=== PATIENT | male | born 1925 | race Caucasian/White ===

== ENCOUNTER 2016-09-16 19:29 | Emergency (ER) | payer MEDICARE, BC ==
[~2016-09-16] VITALS: Ht 188 cm; Wt 96.9 kg
[~2016-09-16 19:29] MED LIST: ACET-2723 PO; ADVANCED COLON CARE PO; ALLO100T51 PO; ASCO-324 PO; CETI-115 PO; CLON0.5T62 PO; ESCI10TA PO; FERR-70 PO; FURO-153 PO; HYDR-347 PO; MIRA25TA PO; MULT-1243 PO; OMEP20CA4 PO; POTA-81 PO; PRAV40TA44 PO; PRIM50TA30 PO; WARF2.5T48 PO; WARF5TAB6 PO
[2016-09-16 19:32] VITALS: Ht 188 cm; Wt 96.9 kg
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
--- OUTSIDE RECORDS SUMMARY | 2016-09-16 19:35 | XMS REPORT | Referral Summary ---
Author Author [facility] Organization [facility] Address Unknown Phone Unavailable Care Team Providers Care Formula Mixer Name Role Phone Bernardino Harris Primary Care Physician [phone] Encounter VC Date(s): 07/27/16 - 07/27/16 [facility] [address] [place] [id number] Discharge Disposition: 01-Home or Self Care Attending Physician: Richie Harris MD Admitting Physician: Richie Harris MD Vital Signs No data available for this section Problem List Condition Effective Dates Status Health Status Informant Allergies(Confirmed) Active Allergic Active rhinitis(Confirmed) Anxiety state, Active unspecified(Confirme d) Aortic Active insufficiency(Confir med) Aortic stenosis, Active mild(Confirmed) Atrial Active fibrillation(Confirm ed) Chronic renal 2009 Active impairment, stage 3 (moderate)(Confirmed ) GERD Active (gastroesophageal reflux disease)(Confirmed) Hyperlipidemia(Confi Active rmed) Prostate Active cancer(Confirmed) Mild mitral Active regurgitation(Confir med) Dermatophytosis of Active nail(Confirmed) Pain in Active limb(Confirmed) PVD (peripheral Active vascular disease)(Confirmed) Pulmonary Active insufficiency - mild(Confirmed) Mild tricuspid Active regurgitation(Confir med) Urge urinary Active incontinence(Confirm ed) Urinary Active urgency(Confirmed) Allergies, Adverse Reactions, Alerts No Known Allergies Medications [place] 7.5 mg-325 mg oral tablet 1 tabs, Oral, TID, X 30 days, # 90 tabs, 0 Refill(s) Start Date: 07/25/16 Stop Date: 08/24/16 Status: Ordered Results No data available for this section Immunizations No data available for this section Procedures Procedure Date Related Diagnosis Body Site Repair of skin wound without graft - open 2014 wound of back MVR - Mitral valve replacement 2008 Laminectomy - L2, L3, L4 2003 Laminectomy - L4-L5 1999 Prostatectomy 1999 Appendectomy 1944 Social History Social History Type Response Smoking Status Never smoker Assessment and Plan No data available for this section
--- OUTSIDE RECORDS SUMMARY | 2016-09-16 19:35 | XMS REPORT | Referral Summary ---
Author Author [facility] Organization [facility] Address Unknown Phone Unavailable Care Team Providers Care Snuff Drier Name Role Phone Bernardino Harris Primary Care Physician [phone] Encounter VC Date(s): 06/01/16 - 06/11/16 [facility] [address] [place] [id number] Discharge Disposition: 01-Home or Self [...] Adverse Reactions, Alerts No Known Allergies Medications No data available for this section Results No data available for this section Immunizations No data available for this section Procedures Procedure Date Related Diagnosis Body Site Repair of skin wound without graft - open 2014 wound of back MVR - Mitral valve replacement 2009 Laminectomy - L2, L3, L4 2003 Laminectomy - L4-L5 1998 Prostatectomy 1998 Appendectomy 1943 Social History Social History Type Response Smoking Status Never smoker Assessment and Plan No data available for this section
--- OUTSIDE RECORDS SUMMARY | 2016-09-16 19:35 | XMS REPORT | Continuity of Care Document ---
Author Author [facility] Organization [facility] Address Unknown Phone Unavailable Support Name Relationship Address Phone LARRY REYES II, MD Caregiver [address] [place] [address] [address] [place], [place] [phone] MARTHA MOODY MD Caregiver [facility] PLASTIC SURGERY [address] [place] [address] [address] [place], [place] [id number] CALEB FLORES DPOA Next Of Kin [address] [place] [address] DA Insurance Providers Payer Name Policy Number Subscriber Name Relationship Medicare [id number] Annalee Tabares 18 Self [facility] [id number] Annalee Tabares 18 Self Advance Directives Directive Response Recorded Date/Time Advanced Directives Type Living Will DPOA for Healthcare 10/22/13 8:46am Ordered Resuscitation Status Do Not Resuscitate 09/26/13 4:42am Resuscitation Documents on File Yes 10/22/13 8:46am Chief Complaint and Reason for Visit Chief Complaint Weakness/Neuro Symptoms Reason for Visit Confusion Bradycardia Weakness Problems Medical Problems Problem Onset Date [...] 01/05/13 01/05/13 Discontinued Allopurinol 100 Mg PO DAILY 01/05/13 Active Solifenacin 10 Mg PO TWICE A DAY 10/24/13 03/20/14 Discontinued Green Tea [place] Extract Unknown Dose PO 11/22/13 11/25/13 Discontinued Furosemide 1 Tab PO DAILY 01/22/14 Active Potassium Chloride 20 Meq PO DAILY 01/22/14 Active Aspirin 1 Tab PO DAILY 01/22/14 Active Omeprazole 20 Mg PO DAILY 03/19/14 Active Warfarin Sodium 5-7.5 Mg PO 1700 Take 1 tablet, by mouth, 1 time a day ( at 5 pm). 06/08/14 Active Multivits-Min/FA/Lycopene/Lut 1 Tab PO DAILY 06/08/14 Active Ascorbate Calcium 1 Tab PO DAILY 06/08/14 Active Cetirizine HCl 1 Tab PO DAILY 06/08/14 Active [Advanced Colon Care] 1 Tab PO NEEDED 06/08/14 Active Ferrous Sulfate, Dried 65 Mg PO GIVE WITH BREAKFAST 06/08/14 Active Solifenacin Succinate 10 Mg PO DAILY 06/08/14 Active Nystatin 1 Applic TOP NEEDED Apply powder twice daily to affected area. 06/08/14 Active Loratadine 1 Tab PO NEEDED 07/14/14 Active Social History Social History Problem Response Recorded Date/Time Chewing Tobacco Status No 10/22/2013 8:47am Hx Substance Use No 07/14/2014 10:56am Hx Alcohol Use No 07/14/2014 10:56am Has the pt used tobacco in the last 12 months No 07/14/2014 10:56am Tobacco Usage none 06/09/2014 11:53am Query Response [...] rate. Condition at time of discharge: Good Pass Plan of Care Discharge Date 06/10/14 7:00pm Disposition 02 TO [facility] Condition at Discharge Stable Instructions/Education Provided Cardiac Arrhythmia (Alternative Therapy) Prescriptions See Medications Section Referrals LARRY REYES II, MD Functional Status Query Response Date Recorded Physical [...] Name Given Type Hx Influenza Vaccination Y 2013 Historical Hx Pneumococcal Vaccination Y 2013 Historical Hx Influenza Vaccination Y 2013 Historical Hx Tetanus Diptheria Y 01/22/14 Historical Vital Signs Acute Vital Signs Vital Response Date/Time Temperature (Fahrenheit) 96.9 deg F (96.8 - 99.1) Temperature (Calculated Celsius) 36.60332 degrees C (36.0 - 37.3) Temperature Source Temporal Pulse Rate (adult) 80 bpm (60 - 100) Respiratory Rate 16 breaths/min (10 - 20) O2 Sat by Pulse Oximetry 98 % (90 - 100) Blood Pressure 107/68 mm Hg Blood Pressure Source Automatic Cuff Height 6 ft 2 in Weight 206 lb Body Mass Index 26.0 kg/m^2 Results Test Source Date Result Interp. [...] 6:45pm 95 U/L N 38-126 Anion Gap July 16, 2014 7:59am 12 MEQ/L N 5-15 Aspartate Amino Transf (AST/SGOT) June 08, 2014 6:45pm 32 U/L N 17- 59 B-Type Natriuretic Peptide March 30, 2009 12:00am 737 PG/ML H 15-100 BUN/Creatinine Ratio July 16, 2014 7:59am 15 RATIO N 6-26 Band Neutrophils # January 06, 2013 4:48am 1.1 T/MM3 - Band Neutrophils % January 06, 2013 4:48am 10.0 % DH 0-6 Basophils # (Auto) July 16, 2014 7:59am 0.1 T/MM3 N 0-0.2 COMMENT [facility] WILL CALL Basophils # (Manual) January 06, 2013 4:48am 0.1 T/MM3 N 0-0.2 Basophils % (Manual) January 06, 2013 4:48am 1.0 % N 0-2 Basophils (%) (Auto) July 16, 2014 7:59am 1.9 % N 0-2 COMMENT [facility] WILL CALL Blood Urea Nitrogen July 16, 2014 7:59am 23.0 MG/DL H 9-20 C-Reactive Protein July 10, 2012 4:40am 30.9 MG/L H 0-9 Calcium Level July 16, 2014 7:59am 9.3 MG/DL N 8.4-10.2 Calculated Osmolality July 16, 2014 7:59am 274 MOSM/KG N 261-280 Carbon Dioxide Level July 16, 2014 7:59am 29 MEQ/L N 22-30 Chemistry Specimen Hemolysis July 16, 2014 7:59am < 15 0-25 0-25 : No Hemolysis.26-70: Slight Hemolysis - can falsely elevate K and Urine Protein. 71-285: Moderate Hemolysis - can falsely elevate K, Troponin I, CA 19-9, PTH, CSF GLucose, and Urine Protein, and can falsely decrease Phenytoin. 286-999: Gross Hemolysis - can falsely elevate K, Troponin I, CA 19-9, PTH, CSF Glucose, and Urine Protine, and can falsely decrease Phenytoin. Recommend specimen recollection. Chloride Level July 16, 2014 7:59am 100 MEQ/L N 98-107 Cholesterol Level April 24, 2009 8:09am 150 MG/DL N 132-199 Cholesterol/HDL Ratio April 24, 2009 8:09am 5.0 RATIO N 0-5.0 Conjugated Bilirubin June 08, 2014 6:45pm 0.00 MG/DL N 0.00-0.30 Creatinine July 16, 2014 7:59am 1.5 MG/DL N 0.8-1.5 Digoxin Level July 04, 2012 4:17pm < 0.4 NG/ML L 0.8-2.0 EKG March 30, 2009 7:20pm Complete - Eosinophils # (Auto) July 16, 2014 7:59am 0.2 T/MM3 N 0-0.5 COMMENT [facility] WILL CALL Eosinophils # (Manual) January 06, 2013 4:48am 0.1 T/MM3 N 0-0.5 Eosinophils % (Manual) January 06, 2013 4:48am 1.0 % N 0-4 Eosinophils (%) (Auto) July 16, 2014 7:59am 4.9 % H 0-4 COMMENT [facility] WILL CALL Folate June 10, 2014 5:28am > 20.0 NG/ML H 2.76-20 NORMAL ADULT RANGE: 2.76->20 ng/mL Free Thyroxine July 04, 2012 4:17pm 1.68 NG/DL N 0.78-2.19 Gentamicin Level Peak July 06, 2012 3:20pm 6.8 UG/ML N 5-12 Gentamicin Level Trough July 06, 2012 1:57pm 1.1 UG/ML N 0-2 Globulin June 08, 2014 6:45pm 3.7 G/DL H 2.4-3.6 Glomerular Filtration Rate Calc July 16, 2014 7:59am 44 - Glucometer July 04, 2012 4:59pm 120 mg/dL H 75-110 Glucose Level July 16, 2014 7:59am 89 MG/DL N 75-110 HDL Cholesterol Direct April 24, 2009 8:09am 30 MG/DL L 40-60 Hematocrit July 16, 2014 7:59am 35.9 % L 41-53 COMMENT [facility] WILL CALL Hemoglobin July 16, 2014 7:59am 12.2 GM/DL L 13.5-17.5 COMMENT [facility] WILL CALL Icterus Index July 16, 2014 7:59am < 2 0-7 Immature Granulocyte # (Auto) July 16, 2014 7:59am 0.00 T/MM3 N 0.00 -0.03 COMMENT [facility] WILL CALL Immature Granulocyte % (Auto) July 16, 2014 7:59am 0.0 % N 0.0-0.5 COMMENT [facility] WILL CALL Influenza Type A Antigen June 08, 2014 7:20pm Negative - Negative for Flu A protein antigen. Assay sensitivity is90%. Influenza Type B Antigen June 08, 2014 7:20pm Negative - Negative for Flu B protein antigen. Assay sensitivity is90%. Iron Level June 10, 2014 5:28am 64 UG/DL N 49-181 LDL Cholesterol, Calculated April 24, 2009 8:09am 105.2 N 66-159 Lab Scanned Report December 23, 2013 8:08pm LAB TEST FORM REQUEST [id number] - Lymphocytes # (Auto) July 16, 2014 7:59am 1.8 T/MM3 N 1-4.8 COMMENT [facility] WILL CALL Lymphocytes # (Manual) January 06, 2013 4:48am 1.1 T/MM3 N 1-4.8 Lymphocytes % (Manual) January 06, 2013 4:48am 10.0 % L 23-45 Lymphocytes (%) (Auto) July 16, 2014 7:59am 38.0 % N 23-45 COMMENT [facility] WILL CALL Magnesium Level June 09, 2014 7:05am 2.0 MG/DL N 1.6-2.3 COMMENT add to blood in lab Mean Corpuscular Hemoglobin July 16, 2014 7:59am 32.7 UUG N 26-34 COMMENT [facility] WILL CALL Mean Corpuscular Hemoglobin Concent July 16, 2014 7:59am 34.0 GM/DL N 31-37 COMMENT [facility] WILL CALL Mean Corpuscular Volume July 16, 2014 7:59am 96.2 UM3 N 80-100 COMMENT [facility] WILL CALL Mean Platelet Volume July 16, 2014 7:59am 10.2 UM3 N 9.4-12.4 COMMENT [facility] WILL CALL Metamyelocytes # January 04, 2013 7:55pm 0.1 T/MM3 - Metamyelocytes % January 04, 2013 7:55pm 1.0 % H 0-0 Monocytes # (Auto) July 16, 2014 7:59am 0.5 T/MM3 N 0-0.8 COMMENT [facility] WILL CALL Monocytes # (Manual) January 05, 2013 4:30am 0.4 T/MM3 N 0-0.8 Monocytes % (Manual) January 05, 2013 4:30am 3.0 % N 0-9.0 Monocytes (%) (Auto) July 16, 2014 7:59am 9.6 % H 0-9.0 COMMENT [facility] WILL CALL NL-Rke-K-Type Natriuretic Peptide January 04, 2013 7:55pm 2330 PG/ML H 0- 175 Rule in cut points: <50 years old=450; 50-75 years old=900; >75 years old=1800; When utilizing ProBNP rule-in cut points, adjustment for impaired renal function is typically not required. Neutrophils # (Auto) July 16, 2014 7:59am 2.1 T/MM3 N 1.8-7.7 COMMENT [facility] WILL CALL Neutrophils # (Manual) January 06, 2013 4:48am 8.4 T/MM3 H 1.8-7.7 Neutrophils % (Manual) January 06, 2013 4:48am 78.0 % H 33-66 Neutrophils (%) (Auto) July 16, 2014 7:59am 45.6 % N 33-66 COMMENT [facility] WILL CALL Parathyroid Hormone (Intact) March 22, 2010 10:29am 40.9 PG/ML N 8.2- 83.5 Percent Iron Saturation June 10, 2014 5:28am 21 % N 13-59 Phosphorus Level March 22, 2010 10:29am 3.8 MG/DL N 2.5-4.5 Platelet Count July 16, 2014 7:59am 143 T/MM3 N 130-400 COMMENT [facility] WILL CALL Potassium Level July 16, 2014 7:59am 4.5 MEQ/L N 3.6-5 Procalcitonin June 08, 2014 6:45pm < 0.05 NG/ML - PCT </=0.5 ng/ mL - sepsis not likely;PCT >0.5 and </=2 ng/mL - sepsis possible; PCT >2 ng/mL - sepsis likely; PCT >/=10 ng/mL - systemic inflammatory response - sepsis or septic shock highly indicated. Prothromb Time International Ratio July 16, 2014 7:59am 1.16 H 0.81- 1.09 THERAPUTIC RANGE=2.00-3.00 FOR ANTI-THROMBOSIS THERAPUTIC RANGE=2.50- 3.50 FOR IMPLANTED VALVE RDW Standard Deviation July 16, 2014 7:59am 43.0 FL N 36.9-50.2 COMMENT [facility] WILL CALL Reactive Lymphocytes # January 04, 2013 7:55pm 0.1 T/MM3 H 0-0 Reactive Lymphocytes % January 04, 2013 7:55pm 1.0 % H 0-0 Red Blood Count July 16, 2014 7:59am 3.73 M/MM3 L 4.50-5.90 COMMENT [facility] WILL CALL Respiratory Syncytial Virus Rapid July 05, 2012 12:33pm Ref lab rpt scanned - --- 07/06/12 0805 ---RSVREF previously reported as: SEND OUT Respiratory Virus Culture (LAB) July 05, 2012 12:33pm Ref lab rpt scanned - --- 07/20/12 1519 ---CUVIRR previously reported as: SEND OUT Sodium Level July 16, 2014 7:59am 141 MEQ/L N 134-144 Stool Occult Blood January 08, 2013 4:15pm Negative - Has specimen been collected/obtained? YCOMMENT get 3 specimen Tests Not Done March 27, 2009 11:05am Not done - NO [facility] ORDERED Thyroid Stimulating Hormone (TSH) June 09, 2014 7:05am 1.64 MIU/L N 0.47-4.68 COMMENT add to blood in lab Total Bilirubin June 08, 2014 6:45pm 1.10 MG/DL N 0.20-1.30 Total Iron Binding Capacity June 10, 2014 5:28am 299 UG/DL N 261- 497 Total Protein June 08, 2014 6:45pm 7.2 G/DL N 6.3-8.2 Triglycerides Level April 24, 2009 8:09am 74 MG/DL N 40-160 Troponin I June 09, 2014 7:05am 0.017 ng/ml N 0-0.12 COMMENT add to blood in lab Turbidity July 16, 2014 7:59am < 20 0-20 Unconjugated Bilirubin June 08, 2014 6:45pm 0.60 [...] Has specimen been collected/obtained? Y Urine Specific [place] June 08, 2014 7:20pm 1.010 L - [...] 2014 6:45pm 1.2 MMOL/L N 0.6-2.2 Vitamin B12 Level June 10, 2014 5:28am 554 PG/ML N 239-931 Vitamin D 25-Hydroxy March 22, 2010 10:29am Ref lab rpt scanned - - -- 03/24/10 1413 ---VIT25 previously reported as: SEND OUT White Blood Count July 16, 2014 7:59am 4.7 T/MM3 N 4.5-11.0 COMMENT [facility] WILL CALL Blood Culture Blood March 19, 2014 3:27pm NO GROWTH AFTER 5 DAYS Gram Stain Leg-Right Upper March 30, 2009 8:56pm Name: ANNALEE TABARES Unit #: [id number] : 1925 Sex: M Loc / Svc: [facility] DOS: 07/15/14 Signed Report #: [id number] DIAGNOSTIC IMAGING REPORT TYPE OF EXAM: US CAROTID DOPP COMPLETE Dictated By: ADRIENNE TAYLOR MD TECHNIQUE: Grayscale, color and duplex Doppler imaging was performed of the carotid systems bilaterally. Velocities in cm/sec RIGHT: PSV ICA 88 PSV CCA 111 PDV CCA 31 PSV ECA 108 ICA Diameter reduction 10%-30% (1.0-1.2 PSV<110)% LEFT: PSV ICA 89 PDV ICA 18 PSV CCA 107 PDV CCA 18 PSV ECA 171 ICA Diameter reduction 10%-30% (1.0-1.2 PSV<110)% The right vertebral artery is patent with cephalic flow. The left vertebral artery is patent with cephalic flow. Heavily calcified plaque in the right common carotid artery. There is also significant calcified and noncalcified plaque throughout the right internal carotid artery. There is some plaque in the left ICA as well but not as significant. IMPRESSION: No hemodynamically significant carotid stenosis. 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 Procedures Procedure Status Date Provider(s) Excision of lesion completed 07/16/14 MARTHA MOODY MD Encounters Encounter Location Date/Time Registered Clinic [facility] 07/15/14 2:25pm Discharged Inpatient [facility] 06/09/14 6:15pm
[2016-09-16] MEDS ORDERED: ASPI81TA2 PO (19:51)
--- OUTSIDE RECORDS SUMMARY | 2016-09-16 19:51 | XMS REPORT | Continuity of Care Document ---
Author Author [facility] Organization [facility] Address Unknown Phone Unavailable Support Name Relationship Address Phone VICTORIA TUCKER MD Caregiver [facility] [address] [place] [address] Unavailable LARRY REYES II, MD Caregiver [address] [place] [address] [place], [place] [phone] MONIKA HILL MD Caregiver [address] [place] [address] [address] [place] [phone] CALEB FLORES DPOA Next Of Kin [address] [place] [address] DA Insurance Providers Payer Name Policy Number Subscriber Name Relationship Medicare [id number] Annalee Tabares 18 Self [facility] [id number] Annalee Tabares 18 Self Advance Directives Directive [...] A DAY 10/24/13 03/20/14 Discontinued Green Tea [place] Extract Unknown Dose PO 11/22/13 11/25/13 Discontinued [...] F (96.8 - 99.1) Temperature (Calculated Celsius) 36.65977 degrees C (36.0 - 37.3) Temperature Source [...] 23, 2013 8:08pm LAB TEST FORM REQUEST [id number] - Lymphocytes # (Auto) June 10, 2014 [...] 10, 2014 5:28am 11.9 % H 0-9.0 IO-Zmm-Z-Type Natriuretic Peptide January 04, 2013 7:55pm 2330 [...] 27, 2009 11:05am Not done - NO [facility] ORDERED Thyroid Stimulating Hormone (TSH) June [...] Has specimen been collected/obtained? Y Urine Specific [place] June 08, 2014 7:20pm 1.010 L - [...] 2009 8:56pm Name: ANNALEE TABARES Unit #: [id number] : 1925 Sex: M Loc / [facility]: SRG DOS: 06/08/14 Signed Report #: [id number] DIAGNOSTIC IMAGING REPORT TYPE OF EXAM: CT [...] injury. There is a preliminary report by [employer]. . Procedures No known history of procedures. Encounters Encounter Location Date/Time Discharged Inpatient [facility] 06/09/14 6:15pm Discharged Inpatient [facility] 03/19/14 3:08pm Recent Diagnosis Bradycardia Confusion Weakness CAD (coronary artery disease) Atrial fibrillation with slow ventricular response PVC's (premature ventricular contractions) Pulmonary hypertension Acute otitis media with effusion Acute otitis externa of right ear Anemia
--- OUTSIDE RECORDS SUMMARY | 2016-09-16 19:51 | XMS REPORT | Continuity of Care Document ---
Author Author [facility] Organization [facility] Address Unknown Phone Unavailable Support Name Relationship Address Phone ASHLYN AVILA MD Caregiver [address] [place] [place] [address] LARRY REYES II, MD Caregiver [address] [facility] [address] [place] [phone] CALEB FLORES DPOA Next Of Kin [address] [place] [address] DA Advance Directives Directive Response [...] A DAY 10/24/13 03/20/14 Discontinued Green Tea [place] Extract Unknown Dose PO 11/22/13 11/25/13 Discontinued [...] ABOUT YOUR CPM PLEASE CALL [facility] AT [phone]. Condition at time of discharge: Good Occupational [...] F (96.8 - 99.1) Temperature (Calculated Celsius) 35.95567 degrees C (36.0 - 37.3) Temperature Source [...] 23, 2013 8:08pm LAB TEST FORM REQUEST [id number] - Lymphocytes # (Auto) March 20, 2014 [...] 20, 2014 5:12am 11.2 % H 0-9.0 DF-Opz-Y-Type Natriuretic Peptide January 04, 2013 7:55pm 2330 [...] 27, 2009 11:05am Not done - NO [facility] ORDERED Thyroid Stimulating Hormone (TSH) July [...] Has specimen been collected/obtained? Y Urine Specific [place] March 19, 2014 2:05pm 1.010 L - [...] 2009 8:56pm Name: ANNALEE LINDA Unit #: [id number] : 1925 Sex: M [facility]: ED DOS: 03/19/14 Signed Report #: [id number] DIAGNOSTIC IMAGING REPORT TYPE OF EXAM: CT [...] 01/22/14 Encounters Encounter Location Date/Time Discharged Inpatient [facility] 03/19/14 3:08pm Departed Emergency Room [facility] 01/22/14 8:53am Registered Clinic [facility] 12/31/13 10:28am Recent Diagnosis Urinary tract infection Elevated INR Weakness
--- OUTSIDE RECORDS SUMMARY | 2016-09-16 19:51 | XMS REPORT | Continuity of Care Document ---
Author Author [facility] Organization [facility] Address Unknown Phone Unavailable Support Name Relationship Address Phone LARRY REYES II, MD Caregiver [address] [place] [address] [address] [place], [place] [phone] MARTHA MOODY MD Caregiver [facility] PLASTIC SURGERY [address] [place] [address] [address] [place], [place] [phone] CALEB FLORES DPOA Next Of Kin [address] [place] [address] DA Insurance Providers Payer Name Policy Number Subscriber Name Relationship Medicare [id number] Annalee Tabares 20 Self [facility] [id number] Annalee Tabares 18 Self Advance Directives Directive [...] A DAY 10/24/13 03/20/14 Discontinued Green Tea [place] Extract Unknown Dose PO 11/22/13 11/25/13 Discontinued [...] Discharge Date 06/10/14 7:00pm Disposition 02 TO [facility] Condition at Discharge Stable Instructions/Education Provided [...] F (96.8 - 99.1) Temperature (Calculated Celsius) 36.82190 degrees C (36.0 - 37.3) Temperature Source [...] 23, 2013 8:08pm LAB TEST FORM REQUEST [id number] - Lymphocytes # (Auto) July 16, 2014 [...] % H 0-9.0 COMMENT [facility] WILL CALL SQ-Hnb-X-Type Natriuretic Peptide January 04, 2013 7:55pm 2330 [...] 2014 7:59am 45.6 % N 33-66 COMMENT [facility] WILL CALL Parathyroid Hormone (Intact) March 22, 2010 10:29am 40.9 PG/ML N 8.2- 83.5 Percent Iron Saturation June 10, 2014 5:28am 21 % N 13-59 Phosphorus Level March 22, 2010 10:29am 3.8 MG/DL N 2.5-4.5 Platelet Count July 16, 2014 7:59am 143 T/MM3 N 130-400 COMMENT [facility] WILL CALL Potassium Level July 16, 2014 [...] 2014 7:59am 43.0 FL N 36.9-50.2 COMMENT [facility] WILL CALL Reactive Lymphocytes # January 04, 2013 7:55pm 0.1 T/MM3 H 0-0 Reactive Lymphocytes % January 04, 2013 7:55pm 1.0 % H 0-0 Red Blood Count July 16, 2014 7:59am 3.73 M/MM3 L 4.50-5.90 COMMENT [facility] WILL CALL Respiratory Syncytial Virus Rapid July [...] 27, 2009 11:05am Not done - NO [facility] ORDERED Thyroid Stimulating Hormone (TSH) June [...] Has specimen been collected/obtained? Y Urine Specific [place] June 08, 2014 7:20pm 1.010 L - [...] 2009 8:56pm Name: ANNALEE TABARES Unit #: [id number] : 1925 Sex: M Loc / Svc: [facility] DOS: 07/15/14 Signed Report #: [id number] DIAGNOSTIC IMAGING REPORT TYPE OF EXAM: US [...] MD Encounters Encounter Location Date/Time Registered Clinic [facility] 07/15/14 2:25pm Discharged Inpatient [facility] 06/09/14 6:15pm
[2016-09-16] MEDS ORDERED: WARF7.5T4 PO (19:52)
--- OUTSIDE RECORDS SUMMARY | 2016-09-16 19:52 | XMS REPORT | Continuity of Care Document ---
Author Author [facility] Organization [facility] Address Unknown Phone Unavailable Support Name Relationship Address Phone PATY ROBLES Caregiver [facility] [address] [place] [address] LARRY REYES II, MD Caregiver [address] [place] [phone] CALEB FLORES DPOA Next Of Kin [address] [place] [address] DA Insurance Providers Payer Name Policy Number Subscriber Name Relationship Medicare [id number] Annalee Tabares 20 Self [facility] [id number] Annalee Tabares 20 Self Advance Directives Directive [...] TWICE A DAY 10/24/13 Active Green Tea [place] Extract Unknown Dose PO 11/22/13 11/25/13 Discontinued [...] F (96.8 - 99.1) Temperature (Calculated Celsius) 36.69778 degrees C (36.0 - 37.3) Pulse Rate [...] 27, 2009 11:05am Not done - NO [facility] ORDERED Thyroid Stimulating Hormone (TSH) July [...] Has specimen been collected/obtained? Y Urine Specific [place] September 26, 2013 1:15am 1.010 L - [...] 23, 2013 8:08pm LAB TEST FORM REQUEST [id number] - EKG March 30, 2009 7:20pm Complete [...] January 22, 2014 8:55am < 2 0-7 GD-Djw-J-Type Natriuretic Peptide January 04, 2013 7:55pm 2330 PG/ML H 0- 175 Rule in cut points: <50 years old=450; 50-75 years old=900; >75 years old=1800; When utilizing ProBNP rule-in cut points, adjustment for impaired renal function is typically not required. Blood Culture Blood September 26, 2013 1:05am Strep Dysgalact Sp Equisimilis Gram Stain Leg-Right Upper March 30, 2009 8:56pm Name: ANNALEE TABARES Unit #: [id number] : 1925 Sex: M Loc / Svc: ED DOS: 01/22/14 Signed Report #: [id number] DIAGNOSTIC IMAGING REPORT TYPE OF EXAM: CT [...] Encounters Encounter Location Date/Time Departed Emergency Room [facility] 01/22/14 8:53am Registered [facility] 12/31/13 10:28am Registered [facility] 12/17/13 8:25am Registered [facility] 12/10/13 10:43am Registered [facility] 12/05/13 10:18am Registered [facility] 12/02/13 10:04am Registered [facility] 11/29/13 10:24am Registered [facility] 11/21/13 10:04am Registered [facility] 11/18/13 10:09am Registered Clinic [facility] 11/15/13 10:06am Registered Clinic [facility] 11/11/13 10:20am Registered Clinic [facility] 11/08/13 9:58am Registered Clinic [facility] 11/05/13 10:13am Registered Clinic [facility] 10/31/13 11:08am Registered Clinic [facility] 10/28/13 9:06am Recent Diagnosis
[2016-09-16] MEDS ORDERED: MAGNALIFE TOP (19:54)
[2016-09-16] MEDS ORDERED: NORMAL SALINE 1,000 ML IV ONE (20:03)
--- NOTE | 2016-09-16 20:12 | ERPDOC ---
Departure Disposition Decision Date: Sep 16, 2016 Disposition Decision Time: 22:11 Disposition: 01 DISCHARGED HOME, SELF-CARE Impression Impression Impression: Primary Impression: Fecal impaction of colon Severity: Moderate Condition: Improved Seen By: Physician only Referrals: LARRY REYES II, MD (Family) 3 Days Patient Instructions: Fecal Impaction (ED) Problems/Meds/Labs Reviewed?: Yes Medications reviewed and manag: Yes Additional Instructions: You have a fecal impaction (too much poop in your colon). The gentlest way to fix this is to take miralax 4-6x per day until you have loose stools (you may need an enema or suppository to help get things moving), then take miralax daily to help keep yourself regular. Naproxen will help significantly with any pain you might have. Narcotics will actually make this problem worse. Follow up with your doctor if you are not improving. Follow up care ordered?: Yes Mental Status: Alert, Occasionally Confused HPI - Abdominal Pain General Chief Complaint: Abdominal Pain Stated Complaint: RIGHT SIDE PAIN Time Seen by Provider: 19:43 Source: patient, RN/MD History/Exam Limitations: dementia HPI - Abdominal Pain Initial Comments 89yo man presented to the ER for abdominal pain. Pt c/o 2wks of RLQ pain (24hrs , per RN) that gets worse with motion/palpation. No palliative factors. Pt has not tried any medications to help with pain so far. Unable to characterize the pain; just painful. Occurred At: home Onset: Rapid Duration: 12-24 hrs Pain Scale: Now: 9/10, Worst: 10/10 Radiation: RLQ Activities at Onset: none Modifying Factors: IMPROVES WITH: rest, WORSE WITH: movement, palpation Associated Symptoms: denies symptoms Hx of Similar Symptoms: No Allergies: Coded Allergies: morphine (Verified Allergy, Intermediate, N/V, 09/16/16) Past History Unable to Obtain PMH Due to: dementia Past Medical History Metabolic: cancer, hypercholesterolemia Cardiac: A-fib, CAD, other Respiratory: other GI: GERD Male: renal insufficiency Neurological: other Musculoskeletal: osteoarthritis Infectious: other Psychological: anxiety Surgical History General: appendix, back Cardiac: cardiac bypass, other, radio ablation, valve replacement Reproductive/: prostatectomy Family History Family PMH: FOUND: cancer Vaccines Hx Influenza Vaccination: Yes (2014) Hx Pneumococcal Vaccination: Yes (2014) Hx Tetanus Diptheria: Yes (01/22/14) Social History Does patient use chewing tobac: No Second Hand Exposure: No Substance Use Type: does not use Alcohol Intake: none Sexuality: female partner Review of Systems Unable to Obtain ROS Due to: dementia GI Lower Abdomen: pain, see HPI All other Systems All Other Systems: Reviewed and Negative Physical Exam General General Nourishment: well nourished, well developed, appears stated age, no acute distress, adult General Body Habitus: well groomed Vitals and Pain First Documented Vital Signs Date Time Temp Pulse Resp B/P Pulse Ox O2 Delivery O2 Flow Rate FiO2 09/16/16 19:32 98.0 79 16 161/68 96 Room Air Weight: Kilograms: 96.900 Height (feet): 6 Height (inches): 2.00 Triage Pain Scale: RN VS reviewed by Provider: Yes Normal Exams: Head: Normocephalic w/o trauma Eyes: Pupils are PERRLA w/ EOMI, No scleral icterus, irritation ENMT: No facial trauma, nasal exudates, pharyngeal erythema Neck: Full range of motion, without adenopathy, JVD Lymphatic: No lymphadenopathy Musculoskeletal: No tenderness, or deformity noted Integumentary: No rashes, hives, or bruising noted Neurologic: Patient is alert, and oriented Psychiatric: Patient exhibits, appropriate attention Respiratory (brief) Respiratory: FOUND: clear all crooks, equal bilaterally, symmetrical, NOT FOUND : rales, wheezes Cardiovascular (brief) Cardiac: FOUND: regular rate, regular rhythm, NOT FOUND: click, gallop, murmur , pedal edema, peripheral edema, rub Capillary Refill: <2 sec Pulses: all distal extremities, equal, strong Abdomen (brief) Abdominal Brief: FOUND: bowel normo active x4, soft, tender (Exquisitely TTP in RLQ), NOT FOUND: distended, hepatosplenomegaly, pulsatile mass Differential Diagnoses Considering: Appendicitis, Biliary Colic, Bowel Obstruction, Constipation, Gastroenteritis, GERD, Hernia, IBS, Ileus, Pancreatitis, Volvulus Progress Results/Orders Orders Lab Results Medications Current ED Medications Sodium Chloride (Normal Saline IV) 1,000 ml @ 250 mls/hr Q4H ONCE IV Last administered on 09/16/16t 20:49; Start 09/16/16 at 20:03; Stop 09/17/16 at 00:02; Status DC Ondansetron HCl (Zofran) 4 mg O ONCE IV Last administered on 09/16/16 20:49; Start 09/16/16 at 20:15; Stop 09/16/16 at 20:16; Status DC Ketorolac Tromethamine (Toradol) 30 mg O ONCE IV Last administered on 20:50; Start 09/16/16 at 20:15; Stop 09/16/16 at 20:16; Status DC Iohexol 1 bottle 1 bottle STK-MED ONCE .ROUTE ; Start 09/16/16 at 21:28; Stop 09/16/16 at 21:29; Status DC Sodium Chloride (NS) 100 ml @ As Directed STK-MED ONCE .ROUTE ; Start 09/16/16 at 21:28; Stop 09/16/16 at 21:29; Status DC Sodium Chloride (Iv Flush) 10 ml STK-MED ONCE .ROUTE ; Start 09/16/16 at 21:28; Stop 09/16/16 at 21:29; Status DC Progress Progress Pt with unremarkable labs and stable CXR/abd CT. Only finding c/w pts stated complaint is colonic impaction. Will recommend appropriate treatment to pt and caregivers. F/u with PCM. Xray Xray : Xray: CXR Portable Interpretation: Normal, Interpreted by Nd CT CT : CT: Abd/Pelvis IV contrast Interpretation: Abnormal (Cardiomegaly; atalectasis; renal cortical atrophy ; cholelithiasis with inflammation; heavy stool burden.) M DO Sep 16, 2016 20:11 (Zofran) 20:15 Chest 1 View RAD 09/16/16 Taken Ketorolac (Toradol) PHA 09/16/16 Complete 20:15 INR LAB 09/16/16 Complete 20:43 PTT LAB 09/16/16 Complete 20:43 Iohexol (Omnipaque) PHA 09/16/16 Complete 21:28 Normal Saline (Ns) PHA 09/16/16 Complete 21:28 Saline Flush (Iv PHA 09/16/16 Complete Flush) 21:28 Lab Results Laboratory Tests Test 09/16/16 20:22 09/16/16 20:31 Prothromb Time International Ratio 2.34 Activated Partial Thromboplast Time 34.3SEC White Blood Count 5.3T/MM3 Red Blood Count 3.70M/MM3 Hemoglobin 12.0GM/DL Hematocrit 36.3% Mean Corpuscular Volume 98.1UM3 Mean Corpuscular Hemoglobin 32.4UUG Mean Corpuscular Hemoglobin Concent 33.1GM/DL RDW Standard Deviation 49.1FL Platelet Count 131T/MM3 Mean Platelet Volume 10.4UM3 Immature Granulocyte % (Auto) 0.2% Neutrophils (%) (Auto) 59.9% Lymphocytes (%) (Auto) 24.8% Monocytes (%) (Auto) 9.7% Eosinophils (%) (Auto) 4.5% Basophils (%) (Auto) 0.9% Absolute Immature Granulocyte (auto 0.01T/MM3 Absolute Neutrophils (auto) 3.2T/MM3 Absolute Lymphocytes (auto) 1.3T/MM3 Absolute Monocytes (auto) 0.5T/MM3 Absolute Eosinophils (auto) 0.2T/MM3 Absolute Basophils (auto) 0.1T/MM3 Turbidity < 20 Sodium Level 140MEQ/L Potassium Level 4.6MEQ/L Chloride Level 98MEQ/L Carbon Dioxide Level 28MEQ/L Anion Gap 14MEQ/L Blood Urea Nitrogen 36.0MG/DL Creatinine 1.4MG/DL Glomerular Filtration Rate Calc 48 BUN/Creatinine Ratio 26RATIO Glucose Level 127MG/DL Calculated Osmolality 279MOSM/KG Calcium Level 9.1MG/DL Icterus Index < 2 Lipase 91U/L Chemistry Specimen Hemolysis 22 Medications Current ED Medications Sodium Chloride (Normal Saline IV) 1,000 ml @ 250 mls/hr Q4H ONCE IV Last administered on 09/16/16 20:49; Start 09/16/16 at 20:03; Stop 09/17/16 at 00:02 Ondansetron HCl (Zofran) 4 mg O ONCE IV Last administered on 09/16/16 20:49; Start 09/16/16 at 20:15; Stop 09/16/16 at 20:16; Status DC Ketorolac Tromethamine (Toradol) 30 mg O ONCE IV Last administered on 20:50; Start 09/16/16 at 20:15; Stop 09/16/16 at 20:16; Status DC Iohexol 1 bottle 1 bottle STK-MED ONCE .ROUTE ; Start 09/16/16 at 21:28; Stop 09/16/16 at 21:29; Status DC Sodium Chloride (NS) 100 ml @ As Directed STK-MED ONCE .ROUTE ; Start 09/16/16 at 21:28; Stop 09/16/16 at 21:29; Status DC Sodium Chloride (Iv Flush) 10 ml STK-MED ONCE .ROUTE ; Start 09/16/16 at 21:28; Stop 09/16/16 at 21:29; Status DC Progress Progress Pt with unremarkable labs and stable CXR/abd CT. Only finding c/w pts stated complaint is colonic impaction. Will recommend appropriate treatment to pt and caregivers. F/u with PCM. Xray Xray : Xray: CXR Portable Interpretation: Normal, Interpreted by Nd CT CT : CT: Abd/Pelvis IV contrast Interpretation: Abnormal (Cardiomegaly; atalectasis; renal cortical atrophy ; cholelithiasis with inflammation; heavy stool burden.) LÁZARO AMBRIZ DO Sep 16, 2016 20:11
[2016-09-16] MEDS ORDERED: ONDANSETRON 4mg/2ml INJECTION IV ONE (20:15)
[2016-09-16] MEDS ORDERED: KETOROLAC 30mg/ml INJECTION IV ONE (20:15)
[2016-09-16 20:54] LABS: INR 2.34 (0.76-1.04); PROTHROMBIN TIME 25.5 SEC (9.31-12.49); PTT 34.3 SEC (24-36)
[2016-09-16 21:02] LABS: BASOPHILS # (AUTO) 0.1 T/MM3 (0-0.2); BASOPHILS % (AUTO) 0.9 % (0-2); EOSINOPHILS # (AUTO) 0.2 T/MM3 (0-0.5); EOSINOPHILS % (AUTO) 4.5 % (0-4); HCT - HEMATOCRIT 36.3 % (41-53); IMMATURE GRANULOCYTE # (AUTO) 0.01 T/MM3 (0.00-0.03); IMMATURE GRANULOCYTE % (AUTO) 0.2 % (0.0-0.5); LYMPHOCYTES # (AUTO) 1.3 T/MM3 (1-4.8); LYMPHOCYTES % (AUTO) 24.8 % (23-45); MEAN CORPUSCULAR HGB 32.4 UUG (26-34); MEAN CORPUSCULAR HGB CONC(MCHC 33.1 GM/DL (31-37); MEAN CORPUSCULAR VOLUME 98.1 UM3 (80-100); MEAN PLATELET VOLUME 10.4 UM3 (9.4-12.4); MONOCYTES # (AUTO) 0.5 T/MM3 (0-0.8); MONOCYTES % (AUTO) 9.7 % (0-9.0); NEUTROPHILS #(AUTO)-ABSOLUTE 3.2 T/MM3 (1.8-7.7); NEUTROPHILS % (AUTO) 59.9 % (33-66); WBC - WHITE BLOOD COUNT 5.3 T/MM3 (4.5-11.0)
[2016-09-16 21:20] LABS: ANION GAP 14 MEQ/L (5-15); BUN/CREATININE RATIO 26 RATIO (6-26); CALCIUM 9.1 MG/DL (8.4-10.2); CHLORIDE 98 MEQ/L (98-107); CO2 - CARBON DIOXIDE 28 MEQ/L (22-30); CREATININE 1.4 MG/DL (0.8-1.5); GLOMERULAR FILTRATION RATE 48; GLUCOSE 127 MG/DL (75-110); LIPASE 91 U/L (23-300); POTASSIUM 4.6 MEQ/L (3.6-5); SODIUM 140 MEQ/L (134-144)
[2016-09-16] MEDS ORDERED: NORMAL SALINE 100 ML ONE (21:28)
[2016-09-16] MEDS ORDERED: SALINE FLUSH 10ml SYRINGE ONE (21:28)
[2016-09-16] MEDS ORDERED: IOHEXOL 300 MG/ML 100ml INJECTION ONE (21:28)
[2016-09-16 23:08] VITALS: BP 142/65; PULSE 69; RESP 16; TEMP 98; O2SAT 96
--- NOTE | 2016-09-16 23:44 | NUR ---
LTC Pt's nurse at [facility] calls, report given. Encouraged nurse to call Pt's PCP for PRN Miralax order. Addendum: 09/17/16 at 0053 by [email or web address] L[facility] Also told Pt's nurse to definitely NOT give Milk of Mag d/t increased abdominal pain.
--- NOTE | 2016-09-18 10:00 | DI ---
Indication: ITS.REASON: abd pain with rales PROCEDURE: CHEST 1 VIEW: Encounter: Initial Comparison: June 08, 2014 Findings: Poststernotomy changes and cardiac valve replacement. No focal consolidative pneumonia, pleural effusion or pneumothorax. Moderate enlargement of the cardiac silhouette. Mediastinal contours and pulmonary vascularity are within normal limits. Impression: No acute cardiopulmonary disease. .
--- NOTE | 2016-09-18 10:04 | DI ---
Indication: ITS.REASON: RLQ pain PROCEDURE: CT ABD/PELVIS W/CONTRAST ONLY: Encounter: Initial Comparison: None Technique: Axial CT images were performed through the abdomen and pelvis after the administration of intravenous contrast. Coronal and sagittal two-dimensional reformats. Automated Exposure Control and Iterative Reconstruction dose reducing techniques were utilized. Contrast: Omnipaque 300 100 mL Findings: Mild atelectasis or scarring in the lung bases. Cardiomegaly. The liver shows no focal consolidative pneumonia. Small gallstones within the gallbladder. The spleen, pancreas and adrenal glands are within normal limits. Kidneys are thinned but show no mass lesion. 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 Post prostatectomy changes. No free fluid. No evidence of a bowel obstruction. Bone windows show degenerative and postoperative changes in the spine. Impression: 1. No acute disease process seen. 2. Bilateral common iliac artery aneurysms. There is a preliminary report by [facility]. .
== END 2016-09-16 23:08 | disposition home or self-care (01) ==
LOC: ED 19:29
DX: K56.41 Fecal impaction (principal); Z79.01 Long term (current) use of anticoagulants
CPT/HCPCS: 36415; 71010; 74177; 80048; 83690; 85025; 85610; 85730; 96361; 96374; 96375; 99284; J1885; J2405; J7030; J7050; Q9967; 36000

== ENCOUNTER 2016-09-20 19:05 | Observation (INO) | payer MEDICARE, BC ==
[~2016-09-20] VITALS: Ht 188 cm; Wt 98.2 kg
[~2016-09-20 19:05] MED LIST changes: +ASPI81TA2 PO; +MAGNALIFE TOP; -WARF2.5T48 PO; -WARF5TAB6 PO; +WARF7.5T4 PO
--- OUTSIDE RECORDS SUMMARY | 2016-09-20 19:09 | XMS REPORT | Continuity of Care Document ---
Author Author [facility] Organization [facility] Address Unknown Phone Unavailable Support Name Relationship Address Phone DWAINE BLANCO MD Caregiver [address] [place] [address] Unavailable OCTOBERLÁZARO DO Caregiver [address] [place] [address] Unavailable CALEB FLORES DPOA Next Of Kin [address] [place] [address] Insurance Providers Guarantor Annalee Tabares Address [address] [place] [address] Email DENIED 16 [facility] Policy Number [id number] Subscriber's Name Annalee Tabares Relationship 18 Self Group [facility] [id number] [facility] Policy Number [id number] Subscriber's Name Annalee Tabares Relationship 18 Self Advance Directives Directive Response Recorded Date/Time Advanced Directives Type Living Will DPOA for Healthcare 10/22/13 8:46am Ordered Resuscitation Status Do Not Resuscitate 09/26/13 4:42am Resuscitation Documents on File Yes 10/22/13 8:46am Chief Complaint and Reason for Visit Chief Complaint Abdominal Pain Reason for Visit Fecal impaction of colon Problems Active Problems Medical Problem Onset Date [...] Onset Date Facial abrasion Unknown Fall Unknown Fecal impaction of colon Unknown Scalp hematoma Unknown Medications Current Home Medications Medication Dose Units Route Directions Days Qty Instructions Start Date Acetaminophen (Tylenol Extra Strength) 500 Mg Tablet 1,000 Mg Oral Twice A Day as needed for Pain/Fever 01/28/16 Advanced Colon Care 1 Tab Oral Daily 06/08/14 Allopurinol 100 Mg Tablet 100 Mg Oral Daily 01/05/13 Ascorbate Calcium (Vitamin C) 500 Mg Tablet 500 Mg Oral Daily Aspirin 81 Mg Tab.chew 81 Mg Oral Daily 09/16/16 Cetirizine Hcl (Zyrtec) 10 Mg Tablet 10 Mg Oral Daily 06/08/14 Clonazepam (Klonopin) 0.5 Mg Tablet 0.5 Mg Oral Three Times A Day 03/30/09 Escitalopram Oxalate (Lexapro) 10 Mg Tablet 10 Mg Oral Daily Ferrous Sulfate 325 Mg Tablet 325 Mg Oral Daily 06/26/16 Furosemide (Lasix) 40 Mg Tablet 40 Mg Oral Daily 06/26/16 Hydrocodone/Acetaminophen ([place] 7.5-325 Tablet) 7.5-325 Tablet 1 Tab Oral Twice A Day 06/26/16 Magnalife 1 Applic Topically Bedtime RELAXING LEG CREAM 09/16/16 Mirabegron (Myrbetriq) 25 Mg Tab.er.24h 25 Mg Oral Daily 01/28/16 Multivits-Min/Fa/Lycopene/Lut (Centrum Silver Tablet) 1 Each Tablet 1 Tab Oral Daily 06/08/14 Omeprazole (Prilosec) 20 Mg Capsule.dr 20 Mg Oral Daily 03/19/14 Potassium Chloride 20 Meq Tablet.er 20 Meq Oral Daily 01/22/14 Pravastatin Sodium (Pravachol) 40 Mg Tablet 80 Mg Oral Daily 28/02 Primidone 50 Mg Tablet 25 Mg Oral Bedtime 06/26/16 Warfarin Sodium 7.5 Mg Tablet 7.5 Mg Oral Daily 09/16/16 Past Home Medications Medication Directions Ordered Status [...] Tab Oral Daily 03/30/09 Discontinued Green Tea [place] Extract (Green Tea) 1 Cap Capsule, Unknown [...] Applicable Not Applicable Hx Substance Use No 09/16/2016 7:45pm Not Applicable Not Applicable Hx Alcohol Use No 09/16/2016 7:45pm Not Applicable Not Applicable Has the pt used tobacco in the last 12 months No 01/28/2016 2:57pm Not Applicable Not Applicable Tobacco Usage none 06/09/2014 11:53am Not Applicable Not Applicable Query Response Start Date Stop Date Smoking Status Never smoker Hospital Discharge Instructions No hospital discharge instructions. Plan of Care Discharge Date 09/16/16 11:08pm Disposition 01 DISCHARGED HOME, SELF-CARE Condition at Discharge Improved Instructions/Education Provided Fecal Impaction (ED) Prescriptions See Medication Section Referrals LARRY REYES II, MD Order Date: 3 Days Address: [address] [place] [address] [address] [place] [address] Note: Additional Instructions/Education You have a fecal impaction (too much poop in your colon). The gentlest way to fix this is to take miralax 4-6x per day until you have loose stools (you may need an enema or suppository to help get things moving), then take miralax daily to help keep yourself regular. Naproxen will help significantly with any pain you might have. Narcotics will actually make this problem worse. Follow up with your doctor if you are not improving. Care Plan and Goals Physician Care Plan Problem: Fecal impaction Goal: Follow up with primary care provider Instructions: Take medications and follow care plan as discussed/written Functional Status No functional status results. Allergies, Adverse Reactions, Alerts Allergen Type Severity Reaction Status Last Updated Morphine Allergy Intermediate N/V Active 09/16/16 Immunizations Query Response on File Recorded Date/Time Hx Influenza Vaccination Y 201401/28/16 2:57pm Hx Pneumococcal Vaccination Y 201401/28/16 2:57pm Hx Influenza Vaccination Y 201401/28/16 2:57pm Hx Tetanus Diptheria Y 01/22/14 06/26/16 6:32pm Influenza Vaccine Hx 03/201609/16/16 7:45pm Vital Signs Acute Vital Signs Vital Response Date/Time Temperature (Fahrenheit) 98.0 deg F (96.8 - 99.1) 09/16/2016 11:08pm Temperature (Calculated Celsius) 36.33739 degrees C (36.0 - 37.3) 09/16/2016 11:08pm Pulse Rate (adult) 69 bpm (60 - 100) 09/16/2016 11:08pm Respiratory Rate 16 breaths/min (10 - 20) 09/16/2016 11:08pm O2 Sat by Pulse Oximetry 96 % (90 - 100) 09/16/2016 11:08pm Blood Pressure 142/65 mm Hg 09/16/2016 11:08pm Height (Feet) 6 feet 09/16/2016 7:32pm Height (Inches) 2.00 inches 09/16/2016 7:32pm Weight (Kilograms) 96.900 kg 09/16/2016 7:32pm Body Mass Index (BMI) 27.0 09/16/2016 7:32pm Results Laboratory Results Test Name Result Units Flags Reference Collection Date/Time Result Date/ Time Comments Total Bilirubin 0.70 MG/DL 0.20-1.30 06/26/2016 6:46pm [...] (ALT/SGPT) 51 U/L 21-72 06/26/2016 6:46pm 6:59pm Urinalysis Comment MICROSCOPIC NOT IND. 06/26/2016 6:27pm 2016 6:37pm Urine Collection Type CLEANCATCH-MIDSTREAM 07/15/2016 11:25am 07/15 12:56pm Urine Color YELLOW YELLOW 07/15/2016 11:2507/15/2016 12:56pm Urine Turbidity CLEAR CLEAR 07/15/2016 11:2507/15/2016 12:56pm Urine Specific [place] 1.020 1.015-1.025 07/15/2016 11:252016 12:56pm Urine pH 6.0 5.0-8.0 07/15/2016 11:25am 07/15/2016 12:56pm Urine Leukocyte Esterase NEGATIVE NEGATIVE 07/15/2016 11:252016 12:56pm Urine Nitrite NEGATIVE NEGATIVE 07/15/2016 11:25am 07/15/2016 12: 56pm Urine Protein NEGATIVE NEGATIVE 07/15/2016 11:25am 07/15/2016 12: 56pm Urine Glucose (UA) NEGATIVE NEGATIVE 07/15/2016 11:2507/15/2016 12 :56pm Urine Ketones NEGATIVE NEGATIVE 07/15/2016 11:2507/15/2016 12: 56pm Urine Urobilinogen 0.2 EU/DL NORMAL 07/15/2016 11:25am 07/15/2016 12: 56pm Urine Bilirubin NEGATIVE NEGATIVE 07/15/2016 11:25am 07/15/2016 12: 56pm Urine Blood NEGATIVE NEGATIVE 07/15/2016 11:07/15/2016 12:56pm Urinalysis Comment MICROSCOPIC NOT IND. 07/15/2016 11:252016 12:56pm White Blood Count 5.3 T/MM3 4.5-11.0 09/16/2016 8:31p09/16/2016 9: 02pm Red Blood Count 3.70 M/MM3 L 4.50-5.90 09/16/2016 8:31pm 09/16/2016 9: 02pm Hemoglobin 12.0 GM/DL L 13.5-17.5 09/16/2016 8:31pm 09/16/2016 9:02pm Hematocrit 36.3 % L 41-53 09/16/2016 8:31pm 09/16/2016 9:02pm Mean Corpuscular Volume 98.1 UM3 80-100 09/16/2016 8:31p09/16/2016 9: 02pm Mean Corpuscular Hemoglobin 32.4 UUG 26-34 09/16/2016 8:31pm 2016 9:02pm Mean Corpuscular Hemoglobin Concent 33.1 GM/DL 31-37 09/16/2016 8:31pm 09/16/2016 9:02pm RDW Standard Deviation 49.1 FL 36.9-50.2 09/16/2016 8:31pm 09/16/2016 9 :02pm Platelet Count 131 T/MM3 130-400 09/16/2016 8:31pm 09/16/2016 9:02pm Mean Platelet Volume 10.4 UM3 9.4-12.4 09/16/2016 8:31pm 09/16/2016 9: 02pm Neutrophils (%) (Auto) 59.9 % 33-66 09/16/2016 8:31pm 09/16/2016 9: 02pm Lymphocytes (%) (Auto) 24.8 % 23-45 09/16/2016 8:[facility] 09/16/2016 9: 02pm Monocytes (%) (Auto) 9.7 % H 0-9.0 09/16/2016 8:[facility] 09/16/2016 9:02pm Eosinophils (%) (Auto) 4.5 % H 0-4 09/16/2016 8:[facility] 09/16/2016 9:02pm Basophils (%) (Auto) 0.9 % 0-2 09/16/2016 8:[facility] 09/16/2016 9:02pm Immature Granulocyte % (Auto) 0.2 % 0.0-0.5 09/16/2016 8:[facility] 2016 9:02pm Absolute Neutrophils (auto) 3.2 T/MM3 1.8-7.7 09/16/2016 8:[facility] 2016 9:02pm Absolute Lymphocytes (auto) 1.3 T/MM3 1-4.8 09/16/2016 8:[facility] 2016 9:02pm Absolute Monocytes (auto) 0.5 T/MM3 0-0.8 09/16/2016 8:[facility] 09/16/2016 9:02pm Absolute Eosinophils (auto) 0.2 T/MM3 0-0.5 09/16/2016 8:[facility] 2016 9:02pm Absolute Basophils (auto) 0.1 T/MM3 0-0.2 09/16/2016 8:[facility] 09/16/2016 9:02pm Absolute Immature Granulocyte (auto 0.01 T/MM3 0.00-0.03 09/16/2016 8: [facility] 09/16/2016 9:02pm Prothromb Time International Ratio 2.34 H 0.76-1.04 09/16/2016 8:22pm 09/16/2016 8:54pm THERAPUTIC RANGE=2.00-3.00 FOR ANTI-THROMBOSIS THERAPUTIC RANGE=2.50-3.50 FOR IMPLANTED VALVE Activated Partial Thromboplast Time 34.3 SEC 24-36 09/16/2016 8:22pm 8:54pm Icterus Index < 2 0-7 09/16/2016 8:[facility] 09/16/2016 9:20pm Chemistry Specimen Hemolysis 22 0-25 09/16/2016 8:31pm 09/16/2016 9: 20pm 0-25: Specimen Exhibited No Hemolysis. Turbidity < 20 0-20 09/16/2016 8:31pm 09/16/2016 9:20pm Sodium Level 140 MEQ/L 134-144 09/16/2016 8:31pm 09/16/2016 9:20pm Potassium Level 4.6 MEQ/L 3.6-5 09/16/2016 8:31pm 09/16/2016 9:20pm Chloride Level 98 MEQ/L 98-107 09/16/2016 8:31pm 09/16/2016 9:20pm Carbon Dioxide Level 28 MEQ/L 22-30 09/16/2016 8:31pm 09/16/2016 9: 20pm Anion Gap 14 MEQ/L 5-15 09/16/2016 8:31pm 09/16/2016 9:20pm Blood Urea Nitrogen 36.0 MG/DL H 9-20 09/16/2016 8:31pm 09/16/2016 9: 20pm Creatinine 1.4 MG/DL 0.8-1.5 09/16/2016 8:31pm 09/16/2016 9:20pm BUN/Creatinine Ratio 26 RATIO 6-26 09/16/2016 8:31pm 09/16/2016 9:20pm Glomerular Filtration Rate Calc 48 09/16/2016 8:31pm 09/16/2016 9: 20pm Glucose Level 127 MG/DL H 75-110 09/16/2016 8:31pm 09/16/2016 9:20pm Calculated Osmolality 279 MOSM/KG 261-280 09/16/2016 8:31pm 09/16/2016 9:20pm Calcium Level 9.1 MG/DL 8.4-10.2 09/16/2016 8:31pm 09/16/2016 9:20pm Lipase 91 U/L 23-300 09/16/2016 8:31pm 09/16/2016 9:20pm Microbiology Results Procedure Source Organism/Result Collection Date/Time Result Date/Time Result Status Urine Culture Urine, Clean Catch-Midstream MIXED GRAM POSITIVE ORGANISMS 11:25am 07/16/2016 12:42pm Final Procedures Procedure Status Date Provider(s) Routine venipuncture Completed 06/26/16 Ct head/brain w/o dye Completed 06/26/16 Comprehen metabolic panel Completed 06/26/16 Urinalysis auto w/o scope Completed 06/26/16 Complete cbc w/auto diff wbc Completed 06/26/16 Emergency dept visit Completed 06/26/16 Urinalysis auto w/o scope Completed 07/15/16 Urine culture/colony count Completed 07/15/16 Encounters Encounter Location Arrival/Admit Date Discharge/Depart Date Attending Provider Departed Emergency Room [facility] 09/16/16 7:29pm 09/16/16 11: 08pm LÁZARO AMBRIZ DO [facility] 07/15/16 12:48pm DWAINE BLANCO MD Departed Emergency Room [facility] 06/26/16 6:00pm 06/26/16 7: 40pm VICTORIA TUCKER MD Recent Diagnosis
--- OUTSIDE RECORDS SUMMARY | 2016-09-20 19:10 | XMS REPORT | Continuity of Care Document ---
Author Author [facility] Organization [facility] Address Unknown Phone Unavailable Support Name Relationship Address Phone VICTORIA TUCKER MD Caregiver [facility] [address] [place] [address] Unavailable LARRY REYES II, MD Caregiver [address] [place] [address] [place], [place] [phone] MONIKA HILL MD Caregiver [address] [place] [address] [address] [place] [phone] CALEB FLORES DPOA Next Of Kin [address] [place] [address] DA Insurance Providers Payer Name Policy Number Subscriber Name Relationship Medicare [id number] Annalee Tabares [address] [facility] [id number] Annalee Tabares 18 Self Advance Directives Directive [...] A DAY 10/24/13 03/20/14 Discontinued Green Tea [place] Extract Unknown Dose PO 11/22/13 11/25/13 Discontinued [...] F (96.8 - 99.1) Temperature (Calculated Celsius) 36.93549 degrees C (36.0 - 37.3) Temperature Source [...] 23, 2013 8:08pm LAB TEST FORM REQUEST [id number] - Lymphocytes # (Auto) June 10, 2014 [...] 10, 2014 5:28am 11.9 % H 0-9.0 [id number]-[id number] Natriuretic Peptide January 04, 2013 7:55pm 2330 [...] 27, 2009 11:05am Not done - NO [facility] ORDERED Thyroid Stimulating Hormone (TSH) June 09, [...] Has specimen been collected/obtained? Y Urine Specific [place] June 08, 2014 7:20pm 1.010 L - [...] 2009 8:56pm Name: ANNALEE TABARES Unit #: [id number] : 1925 Sex: M Loc / [facility]: SRG DOS: 06/08/14 Signed Report #: [id number] DIAGNOSTIC IMAGING REPORT TYPE OF EXAM: CT [...] injury. There is a preliminary report by [employer]. . Procedures No known history of procedures. Encounters Encounter Location Date/Time Discharged Inpatient [facility] 06/09/14 6:15pm Discharged Inpatient [facility] 03/19/14 3:08pm Recent Diagnosis Bradycardia Confusion Weakness CAD (coronary artery disease) Atrial fibrillation with slow ventricular response PVC's (premature ventricular contractions) Pulmonary hypertension Acute otitis media with effusion Acute otitis externa of right ear Anemia
--- OUTSIDE RECORDS SUMMARY | 2016-09-20 19:10 | XMS REPORT | Continuity of Care Document ---
Author Author [facility] Organization [facility] Address Unknown Phone Unavailable Support Name Relationship Address Phone ASHLYN AVILA MD Caregiver [address] [place] [address] LARRY REYES II, MD Caregiver [address] [facility] [address] [place] [phone] CALEB FLORES DPOA Next Of Kin [address] [place] [address] DA Advance Directives Directive Response [...] A DAY 10/24/13 03/20/14 Discontinued Green Tea [place] Extract Unknown Dose PO 11/22/13 11/25/13 Discontinued [...] ABOUT YOUR CPM PLEASE CALL [facility] AT [phone]. Condition at time of discharge: Good Occupational [...] F (96.8 - 99.1) Temperature (Calculated Celsius) 35.62945 degrees C (36.0 - 37.3) Temperature Source [...] 23, 2013 8:08pm LAB TEST FORM REQUEST [id number] - Lymphocytes # (Auto) March 20, 2014 [...] 20, 2014 5:12am 11.2 % H 0-9.0 EZ-Bre-W-Type Natriuretic Peptide January 04, 2013 7:55pm 2330 [...] 27, 2009 11:05am Not done - NO [facility] ORDERED Thyroid Stimulating Hormone (TSH) July [...] Has specimen been collected/obtained? Y Urine Specific [place] March 19, 2014 2:05pm 1.010 L - [...] 2009 8:56pm Name: ANNALEE LINDA Unit #: [id number] : 1925 Sex: M [facility] [place]: 03/19/14 Signed Report #: [id number] DIAGNOSTIC IMAGING REPORT TYPE OF EXAM: CT [...] 01/22/14 Encounters Encounter Location Date/Time Discharged Inpatient [facility] 03/19/14 3:08pm Departed Emergency Room [facility] 01/22/14 8:53am Registered Clinic [facility] 12/31/13 10:28am Recent Diagnosis Urinary tract infection Elevated INR Weakness
--- OUTSIDE RECORDS SUMMARY | 2016-09-20 19:10 | XMS REPORT | Continuity of Care Document ---
Author Author [facility] Organization [facility] Address Unknown Phone Unavailable Support Name Relationship Address Phone PATY ROBLES Caregiver [facility] [address] [place] [place] [address] LARRY REYES II, MD Caregiver [address] [place] [phone] CALEB FLORES DPOA Next Of Kin [address] [place] [address] DA Insurance Providers Payer Name Policy Number Subscriber Name Relationship Medicare [id number] Annalee Tabares 18 Self [facility] [id number] Annalee Tabares 18 Self Advance Directives Directive [...] TWICE A DAY 10/24/13 Active Green Tea [place] Extract Unknown Dose PO 11/22/13 11/25/13 Discontinued [...] F (96.8 - 99.1) Temperature (Calculated Celsius) 36.08266 degrees C (36.0 - 37.3) Pulse Rate [...] 27, 2009 11:05am Not done - NO [facility] ORDERED Thyroid Stimulating Hormone (TSH) July [...] Has specimen been collected/obtained? Y Urine Specific [place] September 26, 2013 1:15am 1.010 L - [...] 23, 2013 8:08pm LAB TEST FORM REQUEST [id number] - EKG March 30, 2009 7:20pm Complete [...] January 22, 2014 8:55am < 2 0-7 LH-Hsc-V-Type Natriuretic Peptide January 04, 2013 7:55pm 2330 PG/ML H 0- 175 Rule in cut points: <50 years old=450; 50-75 years old=900; >75 years old=1800; When utilizing ProBNP rule-in cut points, adjustment for impaired renal function is typically not required. Blood Culture Blood September 26, 2013 1:05am Strep Dysgalact Sp Equisimilis Gram Stain Leg-Right Upper March 30, 2009 8:56pm Name: ANNALEE TABARES Unit #: [id number] : 1925 Sex: M Loc / Svc: ED DOS: 01/22/14 Signed Report #: [id number] DIAGNOSTIC IMAGING REPORT TYPE OF EXAM: CT [...] Encounters Encounter Location Date/Time Departed Emergency Room [facility] 01/22/14 8:53am Registered [facility] 12/31/13 10:28am Registered [facility] 12/17/13 8:25am Registered [facility] 12/10/13 10:43am Registered [facility] 12/05/13 10:18am Registered [facility] 12/02/13 10:04am Registered [facility] 11/29/13 10:24am Registered [facility] 11/21/13 10:04am Registered [facility] 11/18/13 10:09am Registered Clinic [facility] 11/15/13 10:06am Registered Clinic [facility] 11/11/13 10:20am Registered Clinic [facility] 11/08/13 9:58am Registered Clinic [facility] 11/05/13 10:13am Registered Clinic [facility] 10/31/13 11:08am Registered Clinic [facility] 10/28/13 9:06am Recent Diagnosis
--- OUTSIDE RECORDS SUMMARY | 2016-09-20 19:10 | XMS REPORT | Continuity of Care Document ---
Author Author [facility] Organization [facility] Address Unknown Phone Unavailable Support Name Relationship Address Phone LARRY REYES II, MD Caregiver [address] [place] [address] [address] [place], [place] [phone] MARTHA MOODY MD Caregiver [facility] PLASTIC SURGERY [address] [place] [address] [address] [place], [place] [phone] CALEB FLORES DPOA Next Of Kin [address] [place] [address] DA Insurance Providers Payer Name Policy Number Subscriber Name Relationship Medicare [id number] Annalee Tabares 18 Self [employer] [id number] Annalee Tabares 18 Self Advance Directives Directive [...] A DAY 10/24/13 03/20/14 Discontinued Green Tea [place] Extract Unknown Dose PO 11/22/13 11/25/13 [...] appointment with primary care physician Dr. Larry eRyes within next week to 10 days. Patient [...] Discharge Date 06/10/14 7:00pm Disposition 02 TO [facility] Condition at Discharge Stable Instructions/Education Provided Cardiac [...] F (96.8 - 99.1) Temperature (Calculated Celsius) 36.50178 degrees C (36.0 - 37.3) Temperature Source [...] 23, 2013 8:08pm LAB TEST FORM REQUEST [id number] - Lymphocytes # (Auto) July 16, 2014 [...] % H 0-9.0 COMMENT [facility] WILL CALL MB-Eyv-W-Type Natriuretic Peptide January 04, 2013 7:55pm 2330 [...] 2014 7:59am 45.6 % N 33-66 COMMENT [facility] [place] Parathyroid Hormone (Intact) March 22, 2010 10:29am 40.9 PG/ML N 8.2- 83.5 Percent Iron Saturation June 10, 2014 5:28am 21 % N 13-59 Phosphorus Level March 22, 2010 10:29am 3.8 MG/DL N 2.5-4.5 Platelet Count July 16, 2014 7:59am 143 T/MM3 N 130-400 COMMENT [facility] [place] Potassium Level July 16, 2014 [...] 2014 7:59am 43.0 FL N 36.9-50.2 COMMENT [facility] [place] Reactive Lymphocytes # January 04, 2013 7:55pm 0.1 T/MM3 H 0-0 Reactive Lymphocytes % January 04, 2013 7:55pm 1.0 % H 0-0 Red Blood Count July 16, 2014 7:59am 3.73 M/MM3 L 4.50-5.90 COMMENT [facility] [place] Respiratory Syncytial Virus Rapid July [...] 27, 2009 11:05am Not done - NO [facility] ORDERED Thyroid Stimulating Hormone (TSH) [...] Has specimen been collected/obtained? Y Urine Specific [place] June 08, 2014 7:20pm 1.010 L - [...] 2009 8:56pm Name: ANNALEE TABARES Unit #: [id number] : 1925 Sex: M Loc / Svc: [facility] DOS: 07/15/14 Signed Report #: [id number] DIAGNOSTIC IMAGING REPORT TYPE OF EXAM: US [...] MD Encounters Encounter Location Date/Time Registered Clinic [facility] 07/15/14 2:25pm Discharged Inpatient [facility] 06/09/14 6:15pm
[2016-09-20] MEDS ORDERED: ASPI-557 PO (19:27)
[2016-09-20] MEDS ORDERED: POLY119P3 PO (19:33)
[2016-09-20] MEDS ORDERED: MAGN400O4 PO (19:37)
[2016-09-20] MEDS ORDERED: GLYC1SUP RECTALLY (19:37)
--- NOTE | 2016-09-20 19:44 | ERPDOC ---
Departure Disposition Decision Date: Sep 20, 2016 Disposition Decision Time: 21:09 Disposition: 02 TO [facility] Impression Impression Impression: Primary Impression: Right lower quadrant abdominal pain Additional Impression: Constipation Constipation type: unspecified constipation type Qualified Codes: K59.00 - Constipation, unspecified Severity: Moderate Condition: Improved Seen By: Physician only Referrals: DWAINE BLANCO MD (Family) Problems/Meds/Labs Reviewed?: Yes Medications reviewed and manag: Yes Follow up care ordered?: Yes Mental Status: Alert HPI - Abdominal Pain General Chief Complaint: Abdominal Pain Stated Complaint: ABD PAIN Time Seen by Provider: 19:26 Source: patient, family, longterm records History/Exam Limitations: clinical condition HPI - Abdominal Pain Initial Comments Patient has been battling right lower quadrant abdominal pain for several weeks. Patient was seen [address] Norwood, had normal lab, CBC, CMP, and a CT scan of the abdomen that showed nothing but significant stool impaction. Patient was started on October relax and sent back to the longterm. The next day the patient did in fact received 6 doses me relax, and appears to have had a bowel movement at that time. The course of Monday the patient had no bowel movements Monday the patient had no bowel movements and finally the patient was given me relax and several glycerin suppositories as well as milk of magnesia at the longterm today, and he did produce medium-sized stool. However in the interim today, the patient's pain has progressively worsened, and he is now having in his estimation severe right lower quadrant abdominal pain, and he requested come back to the hospital for reevaluation. No known history of chronic constipation, but does have dementia, he is hard of hearing, as well as multiple other physical medical problems. [facility] records the past 2 days the patient has had abdominal distention with reduced bowel sounds on most of the physical exams done by staff. Occurred At: home Onset: Gradual Allergies: Coded Allergies: morphine (Verified Allergy, Intermediate, N/V, 09/20/16) Past History Past Medical History Metabolic: cancer, hypercholesterolemia Cardiac: A-fib, CAD, other Respiratory: other GI: GERD Male: renal insufficiency Neurological: other Musculoskeletal: osteoarthritis Infectious: other Psychological: anxiety PMH Comments Tremors, mild dementia with memory loss Surgical History General: appendix, back Cardiac: cardiac bypass, other, radio ablation, valve replacement Reproductive/: prostatectomy Family History Family PMH: FOUND: cancer Vaccines Hx Influenza Vaccination: Yes (2014) Hx Pneumococcal Vaccination: Yes (2014) Hx Tetanus Diptheria: Yes (01/22/14) Social History Smoking Status: Never smoker Does patient use chewing tobac: No Second Hand Exposure: No Substance Use Type: does not use Alcohol Intake: none Sexuality: female partner Review of Systems Constitutional Constitutional: weakness, DENIES: appetite decrease, appetite increase, chills , dizziness, fever ENMT Ears: DENIES: pain Hearing: DENIES: hearing loss, tinnitus Balance: DENIES: vertigo Mouth/Throat: DENIES: change in swallowing, change in voice, hoarsness, painful swallowing, sore throat Cardiovascular Cardiac: DENIES: chest pain, dyspnea on exertion Rhythm/Rate: DENIES: irregular beat, palpitations, tachycardia Vascular: DENIES: pedal edema Pulmonary Respiratory: DENIES: cough, dyspnea, pleuritic chest pain GI Upper Abdomen: nausea, vomiting, DENIES: dysphagia, food intolerances, heartburn/indigestion, hematemesis, pain Lower Abdomen: constipation, pain, DENIES: blood in stool, kelly-colored stools , diarrhea, melena, painful BM General: DENIES: burning, dysuria, frequency, pain, urgency Musculoskeletal General: DENIES: cramps, joint pain, joint swelling, pain, weakness Integumentary Skin: DENIES: rash, sores Neurological General: DENIES: headache, numbness, tingling, vertigo, weakness Psychiatric Psychiatric: DENIES: anxiety, depression, nervousness Physical Exam General General Nourishment: well nourished, well developed, appears stated age General Body Habitus: well groomed Vitals and Pain First Documented Vital Signs Date Time Temp Pulse Resp B/P Pulse Ox O2 Delivery O2 Flow Rate FiO2 09/20/16 19:13 98.6 72 18 140/65 96 Room Air Weight: Kilograms: Height (feet): 6 Height (inches): 2.00 Triage Pain Scale: RN VS reviewed by Provider: Yes Normal Exams: Head: Normocephalic w/o trauma Eyes: Pupils are PERRLA w/ EOMI, No scleral icterus, irritation, or foreign bodies noted ENMT: No facial trauma, nasal exudates, pharyngeal erythema, or exudates are noted Neck: Full range of motion, without adenopathy, JVD, bruits or thyromegaly Chest/Resp: Clear all crooks, with good airflow, and symmetry bilaterally CV: Regular rate and rhythm, without murmur or gallop, Pulses 2+ all extremities, capillary refill, <2 seconds all ext., no pedal edema noted Lymphatic: No lymphadenopathy, or lymphedema noted Musculoskeletal: No tenderness, or deformity noted, good range of motion, all extremities Integumentary: No rashes, hives, or bruising noted, hair and nails, without abnormality Neurologic: Patient is alert, and oriented, cranial nerves, motor/sensory/ cerebellar, exams w/o gross deficits, to observation Psychiatric: Patient exhibits, appropriate attention, emotion and affect Abdomen (brief) Abdominal Brief: FOUND: bowel normo active x4, distended (mild distention), soft, tender (moderate right lower quadrant tenderness with guarding and rebound ), NOT FOUND: hepatosplenomegaly, pulsatile mass Progress Results/Orders Orders Procedure Category Date Status Time Iv Lock (Ed Only) EDM 09/20/16 Transmitted 19:34 Cbc W/Auto LAB 09/20/16 Complete Diff-Reflex Manual Cmp - Comprehensive LAB 09/20/[address] Abd/Pelvis CT 09/20/16 Logged W/Contrast Only Lipase LAB 09/20/16 Complete Prochlorperazine PHA 09/20/16 Complete (Compazine) 19:45 Normal Saline (Normal PHA 09/20/16 Complete Saline Iv) 19:45 Iohexol (Omnipaque) PHA 09/20/16 Complete 20:11 Normal Saline (Ns) PHA 09/20/16 Complete 20:11 Saline Flush (Iv PHA 09/20/16 Complete Flush) 20:11 Ua, Dip Wreflex LAB 09/20/16 Logged [employer] [facility] 20:54 Lab Results Laboratory Tests Test 09/20/16 19:50 White Blood Count 4.9T/MM3 Red Blood Count 3.44M/MM3 Hemoglobin 11.2GM/DL Hematocrit 34.1% Mean Corpuscular Volume 99.1UM3 Mean Corpuscular Hemoglobin 32.6UUG Mean Corpuscular Hemoglobin Concent 32.8GM/DL RDW Standard Deviation 49.7FL Platelet Count 125T/MM3 Mean Platelet Volume 9.8UM3 Immature Granulocyte % (Auto) 0.2% Neutrophils (%) (Auto) 59.9% Lymphocytes (%) (Auto) 22.5% Monocytes (%) (Auto) 11.3% Eosinophils (%) (Auto) 5.5% Basophils (%) (Auto) 0.6% Absolute Immature Granulocyte (auto 0.01T/MM3 Absolute Neutrophils (auto) 2.9T/MM3 Absolute Lymphocytes (auto) 1.1T/MM3 Absolute Monocytes (auto) 0.6T/MM3 Absolute Eosinophils (auto) 0.3T/MM3 Absolute Basophils (auto) 0.0T/MM3 Turbidity < 20 Sodium Level 138MEQ/L Potassium Level 4.8MEQ/L Chloride Level 98MEQ/L Carbon Dioxide Level 28MEQ/L Anion Gap 12MEQ/L Blood Urea Nitrogen 26.0MG/DL Creatinine 1.3MG/DL Glomerular Filtration Rate Calc 52 BUN/Creatinine Ratio 20RATIO Glucose Level 124MG/DL Calculated Osmolality 272MOSM/KG Calcium Level 8.5MG/DL Total Bilirubin 0.70MG/DL Icterus Index < 2 Aspartate Amino Transf (AST/SGOT) 52U/L Alanine Aminotransferase (ALT/SGPT) 58U/L Alkaline Phosphatase 81U/L Total Protein 7.8G/DL Albumin 3.8G/DL Globulin 4.0G/DL Albumin/Globulin Ratio 1.0RATIO Lipase 72U/L Chemistry Specimen Hemolysis 21 Medications Current ED Medications Prochlorperazine Edisylate 10 mg 10 mg O ONCE IV Last administered on 19:52; Start 09/20/16 at 19:45; Stop 09/20/16 at 19:46; Status DC Sodium Chloride (Normal Saline IV) 1,000 ml @ 0 mls/hr Q0M ONCE IV Last administered on 09/20/16 19:52; Start 09/20/16 at 19:45; Stop 09/20/16 at 19:46 ; Status DC Iohexol 1 bottle 1 bottle STK-MED ONCE .ROUTE ; Start 09/20/16 at 20:11; Stop at 20:12; Status DC Sodium Chloride (NS) 100 ml @ As Directed STK-MED ONCE .ROUTE ; Start 09/20/16 at 20:11; Stop 09/20/16 at 20:12; Status DC Sodium Chloride (Iv Flush) 10 ml STK-MED ONCE .ROUTE ; Start 09/20/16 at 20:11; Stop 09/20/16 at 20:12; Status DC Progress Progress Patient given Toradol, Compazine, and 1 L normal saline IV fluid bolus IV - CBC - n CMP/L - n UA - Repeat CT abdomen - normal with the exception of visible cholelithiasis without cholecystitis, and moderate stool in the colon only. Patient continues to have significant right sided lower abdominal pain with guarding, despite feeling better at rest. Patient has essentially failed multiple outpatient trials with me relax, milk of magnesia, oral fluids, as well as glycerin and Dulcolax suppositories. Due to the patient's active abdominal pain, which recommended that the patient stay overnight for IV fluids , IV pain medications, and enemas until clear. Case discussed with Dr. Deena Leong -accepting patient to medical floor observation for abdominal pain with constipation VICTORIA TUCKER MD Sep 20, 2016 19:44
[2016-09-20] MEDS ORDERED: NORMAL SALINE 1,000 ML IV ONE (19:45)
[2016-09-20] MEDS ORDERED: PROCHLORPERAZINE 10mg/2ml INJECTION IV ONE (19:45)
[2016-09-20 19:55] LABS: BASOPHILS % (AUTO) 0.6 % (0-2); EOSINOPHILS # (AUTO) 0.3 T/MM3 (0-0.5); EOSINOPHILS % (AUTO) 5.5 % (0-4); HCT - HEMATOCRIT 34.1 % (41-53); HGB - HEMOGLOBIN 11.2 GM/DL (13.5-17.5); IMMATURE GRANULOCYTE # (AUTO) 0.01 T/MM3 (0.00-0.03); IMMATURE GRANULOCYTE % (AUTO) 0.2 % (0.0-0.5); LYMPHOCYTES # (AUTO) 1.1 T/MM3 (1-4.8); LYMPHOCYTES % (AUTO) 22.5 % (23-45); MEAN CORPUSCULAR HGB 32.6 UUG (26-34); MEAN CORPUSCULAR HGB CONC(MCHC 32.8 GM/DL (31-37); MEAN CORPUSCULAR VOLUME 99.1 UM3 (80-100); MEAN PLATELET VOLUME 9.8 UM3 (9.4-12.4); MONOCYTES # (AUTO) 0.6 T/MM3 (0-0.8); MONOCYTES % (AUTO) 11.3 % (0-9.0); NEUTROPHILS #(AUTO)-ABSOLUTE 2.9 T/MM3 (1.8-7.7); NEUTROPHILS % (AUTO) 59.9 % (33-66); RED BLOOD COUNT 3.44 M/MM3 (4.50-5.90); WBC - WHITE BLOOD COUNT 4.9 T/MM3 (4.5-11.0)
[2016-09-20 20:03] LABS: ALBUMIN 3.8 G/DL (3.5-5.0); ALKALINE PHOSPHATASE 81 U/L (38-126); ALT (SGPT) 58 U/L (21-72); ANION GAP 12 MEQ/L (5-15); AST (SGOT) 52 U/L (17-59); BUN/CREATININE RATIO 20 RATIO (6-26); CALCIUM 8.5 MG/DL (8.4-10.2); CHLORIDE 98 MEQ/L (98-107); CO2 - CARBON DIOXIDE 28 MEQ/L (22-30); CREATININE 1.3 MG/DL (0.8-1.5); GLOMERULAR FILTRATION RATE 52; GLUCOSE 124 MG/DL (75-110); LIPASE 72 U/L (23-300); POTASSIUM 4.8 MEQ/L (3.6-5); SODIUM 138 MEQ/L (134-144); TOTAL PROTEIN 7.8 G/DL (6.3-8.2)
[2016-09-20] MEDS ORDERED: IOHEXOL 300 MG/ML 100ml INJECTION ONE (20:11)
[2016-09-20] MEDS ORDERED: NORMAL SALINE 100 ML ONE (20:11)
[2016-09-20] MEDS ORDERED: SALINE FLUSH 10ml SYRINGE ONE (20:11)
--- NOTE | 2016-09-20 20:12 | NUR ---
CT PATIENT TO CT PER CART, STABLE.
--- NOTE | 2016-09-20 20:27 | NUR ---
RETURN PATIENT BACK FROM CT PER CART, STABLE.
--- OUTSIDE RECORDS SUMMARY | 2016-09-20 20:48 | XMS REPORT | Continuity of Care Document ---
Author Author [facility] Organization [facility] Address Unknown Phone Unavailable Support Name Relationship Address Phone ASHLYN AVILA MD Caregiver [address] [place] [address] LARRY REYES II, MD Caregiver [address] [facility] [address] [place] [phone] CALEB FLORES DPOA Next Of Kin [address] [place] [address] DA Advance Directives Directive Response [...] A DAY 10/24/13 03/20/14 Discontinued Green Tea [place] Extract Unknown Dose PO 11/22/13 11/25/13 Discontinued [...] ABOUT YOUR CPM PLEASE CALL [facility] AT [phone]. Condition at time of discharge: Good Occupational [...] F (96.8 - 99.1) Temperature (Calculated Celsius) 35.28691 degrees C (36.0 - 37.3) Temperature Source [...] 23, 2013 8:08pm LAB TEST FORM REQUEST [id number] - Lymphocytes # (Auto) March 20, 2014 [...] 20, 2014 5:12am 11.2 % H 0-9.0 FM-Rvd-X-Type Natriuretic Peptide January 04, 2013 7:55pm 2330 [...] 27, 2009 11:05am Not done - NO [facility] ORDERED Thyroid Stimulating Hormone (TSH) July 04, [...] Has specimen been collected/obtained? Y Urine Specific [place] March 19, 2014 2:05pm 1.010 L - [...] 2009 8:56pm Name: ANNALEE LINDA Unit #: [id number] : 1925 Sex: M [facility]: ED DOS: 03/19/14 Signed Report #: [id number] DIAGNOSTIC IMAGING REPORT TYPE OF EXAM: CT [...] 01/22/14 Encounters Encounter Location Date/Time Discharged Inpatient [facility] 03/19/14 3:08pm Departed Emergency Room [facility] 01/22/14 8:53am Registered Clinic [facility] 12/31/13 10:28am Recent Diagnosis Urinary tract infection Elevated INR Weakness
--- OUTSIDE RECORDS SUMMARY | 2016-09-20 20:48 | XMS REPORT | Continuity of Care Document ---
Author Author [facility] Organization [facility] Address Unknown Phone Unavailable Support Name Relationship Address Phone LARRY REYES II, MD Caregiver [address] [place] [address] [address] [place], [place] [phone] MARTHA MOODY MD Caregiver [facility] PLASTIC SURGERY [address] [place] [address] [address] [place], [place] [phone] CALEB FLORES DPOA Next Of Kin [address] [place] [address] DA Insurance Providers Payer Name Policy Number Subscriber Name Relationship Medicare [id number] Annalee Tabares 18 Self [facility] [id number] Annalee Tabares 18 Self Advance Directives Directive [...] A DAY 10/24/13 03/20/14 Discontinued Green Tea [place] Extract Unknown Dose PO 11/22/13 11/25/13 Discontinued [...] Discharge Date 06/10/14 7:00pm Disposition 02 TO [facility] Condition at Discharge Stable Instructions/Education Provided [...] F (96.8 - 99.1) Temperature (Calculated Celsius) 36.06432 degrees C (36.0 - 37.3) Temperature Source [...] 23, 2013 8:08pm LAB TEST FORM REQUEST [id number] - Lymphocytes # (Auto) July 16, 2014 [...] % H 0-9.0 COMMENT [facility] WILL CALL NR-Ebv-A-Type Natriuretic Peptide January 04, 2013 7:55pm 2330 [...] 2014 7:59am 45.6 % N 33-66 COMMENT [facility] WILL CALL Parathyroid Hormone (Intact) March 22, 2010 10:29am 40.9 PG/ML N 8.2- 83.5 Percent Iron Saturation June 10, 2014 5:28am 21 % N 13-59 Phosphorus Level March 22, 2010 10:29am 3.8 MG/DL N 2.5-4.5 Platelet Count July 16, 2014 7:59am 143 T/MM3 N 130-400 COMMENT [facility] WILL CALL Potassium Level July 16, 2014 [...] 2014 7:59am 43.0 FL N 36.9-50.2 COMMENT [facility] WILL CALL Reactive Lymphocytes # January 04, 2013 7:55pm 0.1 T/MM3 H 0-0 Reactive Lymphocytes % January 04, 2013 7:55pm 1.0 % H 0-0 Red Blood Count July 16, 2014 7:59am 3.73 M/MM3 L 4.50-5.90 COMMENT [facility] WILL CALL Respiratory Syncytial Virus Rapid July [...] 27, 2009 11:05am Not done - NO [facility] ORDERED Thyroid Stimulating Hormone (TSH) June [...] Has specimen been collected/obtained? Y Urine Specific [place] June 08, 2014 7:20pm 1.010 L - [...] 2009 8:56pm Name: ANNALEE TABARES Unit #: [id number] : 1925 Sex: M Loc / Svc: [facility] DOS: 07/15/14 Signed Report #: [id number] DIAGNOSTIC IMAGING REPORT TYPE OF EXAM: US [...] MD Encounters Encounter Location Date/Time Registered Clinic [facility] 07/15/14 2:25pm Discharged Inpatient [facility] 06/09/14 6:15pm
--- OUTSIDE RECORDS SUMMARY | 2016-09-20 20:48 | XMS REPORT | Continuity of Care Document ---
Author Author [facility] Organization [facility] Address Unknown Phone Unavailable Support Name Relationship Address Phone VICTORIA TUCKER MD Caregiver [facility] [address] [place] [address] Unavailable LARRY REYES II, MD Caregiver [address] [place] [address] [place], [place] [phone] MONIKA HILL MD Caregiver [address] [place] [address] [address] [place] [phone] CALEB FLORES DPOA Next Of Kin [address] [place] [address] DA Insurance Providers Payer Name Policy Number Subscriber Name Relationship Medicare [id number] Annalee Tabares 18 Self [facility] [id number] Annalee Tabares 18 Self Advance Directives Directive [...] A DAY 10/24/13 03/20/14 Discontinued Green Tea [place] Extract Unknown Dose PO 11/22/13 11/25/13 Discontinued [...] F (96.8 - 99.1) Temperature (Calculated Celsius) 36.55981 degrees C (36.0 - 37.3) Temperature Source [...] 23, 2013 8:08pm LAB TEST FORM REQUEST [id number] - Lymphocytes # (Auto) June 10, 2014 [...] 10, 2014 5:28am 11.9 % H 0-9.0 UA-Ftu-U-Type Natriuretic Peptide January 04, 2013 7:55pm 2330 [...] 27, 2009 11:05am Not done - NO [facility] ORDERED Thyroid Stimulating Hormone (TSH) June [...] Has specimen been collected/obtained? Y Urine Specific [employer] [place] [employer] [place] June 08, 2014 7:20pm 1.010 L - [...] 2009 8:56pm Name: ANNALEE TABARES Unit #: [id number] : 1925 Sex: M Loc / [facility]: [facility] DOS: 06/08/14 Signed Report #: [id number] DIAGNOSTIC IMAGING REPORT TYPE OF EXAM: CT [...] injury. There is a preliminary report by [facility]. . Procedures No known history of procedures. Encounters Encounter Location Date/Time Discharged Inpatient [facility] 06/09/14 6:15pm Discharged Inpatient [facility] 03/19/14 3:08pm Recent Diagnosis Bradycardia Confusion Weakness CAD (coronary artery disease) Atrial fibrillation with slow ventricular response PVC's (premature ventricular contractions) Pulmonary hypertension Acute otitis media with effusion Acute otitis externa of right ear Anemia
--- OUTSIDE RECORDS SUMMARY | 2016-09-20 20:49 | XMS REPORT | Continuity of Care Document ---
Author Author [facility] Organization [facility] Address Unknown Phone Unavailable Support Name Relationship Address Phone PATY ROBLES Caregiver [facility] [address] [place] [place] [address] LARRY REYES II, MD Caregiver [address] [place] [phone] CALEB FLORES DPOA Next Of Kin [address] [place] [address] DA Insurance Providers Payer Name Policy Number Subscriber Name Relationship Medicare [id number] Annalee Tabares 20 Self [facility] [id number] Annalee Tabares 18 Self Advance Directives Directive [...] TWICE A DAY 10/24/13 Active Green Tea [place] Extract Unknown Dose PO 11/22/13 11/25/13 Discontinued [...] F (96.8 - 99.1) Temperature (Calculated Celsius) 36.51757 degrees C (36.0 - 37.3) Pulse Rate [...] 27, 2009 11:05am Not done - NO [facility] ORDERED Thyroid Stimulating Hormone (TSH) July [...] Has specimen been collected/obtained? Y Urine Specific [place] September 26, 2013 1:15am 1.010 L - [...] 23, 2013 8:08pm LAB TEST FORM REQUEST [id number] - EKG March 30, 2009 7:20pm Complete [...] January 22, 2014 8:55am < 2 0-7 EB-Ckf-O-Type Natriuretic Peptide January 04, 2013 7:55pm 2330 PG/ML H 0- 175 Rule in cut points: <50 years old=450; 50-75 years old=900; >75 years old=1800; When utilizing ProBNP rule-in cut points, adjustment for impaired renal function is typically not required. Blood Culture Blood September 26, 2013 1:05am Strep Dysgalact Sp Equisimilis Gram Stain Leg-Right Upper March 30, 2009 8:56pm Name: ANNALEE TABARES Unit #: [id number] : 1925 Sex: M Loc / Svc: ED DOS: 01/22/14 Signed Report #: [id number] DIAGNOSTIC IMAGING REPORT TYPE OF EXAM: CT [...] Encounters Encounter Location Date/Time Departed Emergency Room [facility] 01/22/14 8:53am Registered [facility] 12/31/13 10:28am Registered [facility] 12/17/13 8:25am Registered [facility] 12/10/13 10:43am Registered [facility] 12/05/13 10:18am Registered [facility] 12/02/13 10:04am Registered [facility] 11/29/13 10:24am Registered [facility] 11/21/13 10:04am Registered [facility] 11/18/13 10:09am Registered Clinic [facility] 11/15/13 10:06am Registered Clinic [facility] 11/11/13 10:20am Registered Clinic [facility] 11/08/13 9:58am Registered Clinic [facility] 11/05/13 10:13am Registered Clinic [facility] 10/31/13 11:08am Registered Clinic [facility] 10/28/13 9:06am Recent Diagnosis
--- NOTE | 2016-09-20 20:55 | NUR ---
REPORT RECEIVED FROM ASHLEY CABALLERO AT THIS TIME, CARE IS RESUMED.
--- NOTE | 2016-09-20 20:58 | NUR ---
PROVIDER DR TUCKER IN ROOM AT THIS TIME.
[2016-09-20 21:02] LABS: BLOOD, URINE NEGATIVE (NEGATIVE); COLOR,URINE YELLOW (YELLOW); LEUKOCYTE ESTERASE ,URINE NEGATIVE (NEGATIVE); NITRITE,URINE NEGATIVE (NEGATIVE); UROBILINOGEN,URINE 0.2 EU/DL (NORMAL)
[2016-09-20] MEDS ORDERED: HYDROMORPHONE 2mg/ml INJECTION IV ONE (21:15)
[2016-09-20] MEDS ORDERED: MILK OF MAGNESIA 30 ML SUSP PO PRN (21:30)
[2016-09-20] MEDS ORDERED: FLEET PHOSPHO-SODA 133 ML ENEMA RECTALLY ONE (21:30)
[2016-09-20] MEDS ORDERED: GLYCERIN PEDIATRIC RECTAL SUPPOSITORY RECTALLY PRN (21:30)
[2016-09-20] MEDS ORDERED: MILK OF MAGNESIA 30 ML SUSP PO ONE (21:30)
--- OUTSIDE RECORDS SUMMARY | 2016-09-20 21:37 | XMS REPORT | Continuity of Care Document ---
Author Author [facility] Organization [facility] Address Unknown Phone Unavailable Support Name Relationship Address Phone ASHLYN AVILA MD Caregiver [address] [place] [address] LARRY REYES II, MD Caregiver [address] [facility] [address] [place] [phone] CALEB FLORES DPOA Next Of Kin [address] [place] [address] DA Advance Directives Directive Response [...] A DAY 10/24/13 03/20/14 Discontinued Green Tea [place] Extract Unknown Dose PO 11/22/13 11/25/13 Discontinued [...] ABOUT YOUR CPM PLEASE CALL [facility] AT [phone]. Condition at time of discharge: Good Occupational [...] F (96.8 - 99.1) Temperature (Calculated Celsius) 35.28621 degrees C (36.0 - 37.3) Temperature Source [...] 23, 2013 8:08pm LAB TEST FORM REQUEST [id number] - Lymphocytes # (Auto) March 20, 2014 [...] 20, 2014 5:12am 11.2 % H 0-9.0 SA-Sdc-U-Type Natriuretic Peptide January 04, 2013 7:55pm 2330 [...] 27, 2009 11:05am Not done - NO [facility] ORDERED Thyroid Stimulating Hormone (TSH) July [...] Has specimen been collected/obtained? Y Urine Specific [place] March 19, 2014 2:05pm 1.010 L - [...] 2009 8:56pm Name: ANNALEE LINDA Unit #: [id number] : 1925 Sex: M [facility]: ED DOS: 03/19/14 Signed Report #: [id number] DIAGNOSTIC IMAGING REPORT TYPE OF EXAM: CT [...] 01/22/14 Encounters Encounter Location Date/Time Discharged Inpatient [facility] 03/19/14 3:08pm Departed Emergency Room [facility] 01/22/14 8:53am Registered Clinic [facility] 12/31/13 10:28am Recent Diagnosis Urinary tract infection Elevated INR Weakness
--- OUTSIDE RECORDS SUMMARY | 2016-09-20 21:37 | XMS REPORT | Continuity of Care Document ---
Author Author [facility] Organization [facility] Address Unknown Phone Unavailable Support Name Relationship Address Phone LARRY REYES II, MD Caregiver [address] [place] [address] [address] [place], [place] [phone] MARTHA MOODY MD Caregiver [facility] [address] [place] [address] [address] [place], [place] [phone] CALEB FLORES DPOA Next Of Kin [address] [place] [address] DA Insurance Providers Payer Name Policy Number Subscriber Name Relationship Medicare [id number] Annalee Tabares 20 Self [facility] [id number] Annalee Tabares 18 Self Advance Directives Directive [...] A DAY 10/24/13 03/20/14 Discontinued Green Tea [place] Extract Unknown Dose PO 11/22/13 11/25/13 Discontinued [...] Discharge Date 06/10/14 7:00pm Disposition 02 TO [facility] Condition at Discharge Stable Instructions/Education Provided Cardiac [...] F (96.8 - 99.1) Temperature (Calculated Celsius) 36.00370 degrees C (36.0 - 37.3) Temperature Source [...] 23, 2013 8:08pm LAB TEST FORM REQUEST [id number] - Lymphocytes # (Auto) July 16, 2014 [...] % H 0-9.0 COMMENT [facility] WILL CALL ZK-Xqt-F-Type Natriuretic Peptide January 04, 2013 7:55pm 2330 [...] 2014 7:59am 45.6 % N 33-66 COMMENT [facility] WILL CALL Parathyroid Hormone (Intact) March 22, 2010 10:29am 40.9 PG/ML N 8.2- 83.5 Percent Iron Saturation June 10, 2014 5:28am 21 % N 13-59 Phosphorus Level March 22, 2010 10:29am 3.8 MG/DL N 2.5-4.5 Platelet Count July 16, 2014 7:59am 143 T/MM3 N 130-400 COMMENT [facility] WILL CALL Potassium Level July [...] 2014 7:59am 43.0 FL N 36.9-50.2 COMMENT [facility] WILL CALL Reactive Lymphocytes # January 04, 2013 7:55pm 0.1 T/MM3 H 0-0 Reactive Lymphocytes % January 04, 2013 7:55pm 1.0 % H 0-0 Red Blood Count July 16, 2014 7:59am 3.73 M/MM3 L 4.50-5.90 COMMENT [facility] WILL CALL Respiratory Syncytial Virus [...] 27, 2009 11:05am Not done - NO [facility] ORDERED Thyroid Stimulating Hormone (TSH) June [...] Has specimen been collected/obtained? Y Urine Specific [place] June 08, 2014 7:20pm 1.010 L - [...] 2009 8:56pm Name: ANNALEE TABARES Unit #: [id number] : 1925 Sex: M Loc / Svc: [facility] DOS: 07/15/14 Signed Report #: [id number] DIAGNOSTIC IMAGING REPORT TYPE OF EXAM: US [...] MD Encounters Encounter Location Date/Time Registered Clinic [facility] 07/15/14 2:25pm Discharged Inpatient [facility] 06/09/14 6:15pm
--- OUTSIDE RECORDS SUMMARY | 2016-09-20 21:37 | XMS REPORT | Continuity of Care Document ---
Author Author [facility] Organization [facility] Address Unknown Phone Unavailable Support Name Relationship Address Phone VICTORIA TUCKER MD Caregiver [facility] [address] [place] [address] Unavailable LARRY REYES II, MD Caregiver [address] [place] [address] [place], [place] [phone] MONIKA HILL MD Caregiver [address] [place] [address] [address] [place] [phone] CALEB FLORES DPOA Next Of Kin [address] [place] [address] DA Insurance Providers Payer Name Policy Number Subscriber Name Relationship Medicare [id number] Annalee Tabares 20 Self [facility] [id number] Annalee Tabares 20 Self Advance Directives Directive [...] A DAY 10/24/13 03/20/14 Discontinued Green Tea [place] Extract Unknown Dose PO 11/22/13 11/25/13 Discontinued [...] F (96.8 - 99.1) Temperature (Calculated Celsius) 36.17610 degrees C (36.0 - 37.3) Temperature Source [...] 23, 2013 8:08pm LAB TEST FORM REQUEST [id number] - Lymphocytes # (Auto) June 10, 2014 [...] 10, 2014 5:28am 11.9 % H 0-9.0 SU-Nwl-X-Type Natriuretic Peptide January 04, 2013 7:55pm 2330 [...] 27, 2009 11:05am Not done - NO [facility] ORDERED Thyroid Stimulating Hormone (TSH) June [...] Has specimen been collected/obtained? Y Urine Specific [place] June 08, 2014 7:20pm 1.010 L - [...] 2009 8:56pm Name: ANNALEE TABARES Unit #: [id number] : 1925 Sex: M Loc / [facility]: [facility] DOS: 06/08/14 Signed Report #: [id number] DIAGNOSTIC IMAGING REPORT TYPE OF EXAM: CT [...] injury. There is a preliminary report by [facility]. . Procedures No known history of procedures. [...]
--- OUTSIDE RECORDS SUMMARY | 2016-09-20 21:38 | XMS REPORT | Continuity of Care Document ---
Author Author [facility] Organization [facility] Address Unknown Phone Unavailable Support Name Relationship Address Phone PATY ROBLES Caregiver [facility] [address] [place] [address] LARRY REYES II, MD Caregiver [address] [place] [phone] CALEB FLORES DPOA Next Of Kin [address] [place] [address] DA Insurance Providers Payer Name Policy Number Subscriber Name Relationship Medicare [id number] Annalee Tabares 20 Self [facility] [id number] Annalee Tabares 20 Self Advance Directives Directive [...] TWICE A DAY 10/24/13 Active Green Tea [place] Extract Unknown Dose PO 11/22/13 11/25/13 Discontinued [...] F (96.8 - 99.1) Temperature (Calculated Celsius) 36.79648 degrees C (36.0 - 37.3) Pulse Rate [...] 27, 2009 11:05am Not done - NO [facility] ORDERED Thyroid Stimulating Hormone (TSH) July [...] Has specimen been collected/obtained? Y Urine Specific [place] September 26, 2013 1:15am 1.010 L - [...] 23, 2013 8:08pm LAB TEST FORM REQUEST [id number] - EKG March 30, 2009 7:20pm Complete [...] January 22, 2014 8:55am < 2 0-7 LB-Jhf-A-Type Natriuretic Peptide January 04, 2013 7:55pm 2330 PG/ML H 0- 175 Rule in cut points: <50 years old=450; 50-75 years old=900; >75 years old=1800; When utilizing ProBNP rule-in cut points, adjustment for impaired renal function is typically not required. Blood Culture Blood September 26, 2013 1:05am Strep Dysgalact Sp Equisimilis Gram Stain Leg-Right Upper March 30, 2009 8:56pm Name: ANNALEE TABARES Unit #: [id number] : 1925 Sex: M Loc / Svc: ED DOS: 01/22/14 Signed Report #: [id number] DIAGNOSTIC IMAGING REPORT TYPE OF EXAM: CT [...] Encounters Encounter Location Date/Time Departed Emergency Room [facility] 01/22/14 8:53am Registered [facility] 12/31/13 10:28am Registered [facility] 12/17/13 8:25am Registered [facility] 12/10/13 10:43am Registered [facility] 12/05/13 10:18am Registered [facility] 12/02/13 10:04am Registered [facility] 11/29/13 10:24am Registered [facility] 11/21/13 10:04am Registered [facility] 11/18/13 10:09am Registered Clinic [facility] 11/15/13 10:06am Registered Clinic [facility] 11/11/13 10:20am Registered Clinic [facility] 11/08/13 9:58am Registered Clinic [facility] 11/05/13 10:13am Registered Clinic [facility] 10/31/13 11:08am Registered Clinic [facility] 10/28/13 9:06am Recent Diagnosis
--- NOTE | 2016-09-20 21:47 | NUR ---
REPORT GIVEN TO MYRTLE CABALLERO AT THIS TIME.
[2016-09-20] MEDS ORDERED: PRIMIDONE 50 MG TABLET PO SCH (22:00)
--- NOTE | 2016-09-20 22:18 | NUR ---
DEPART PT LEAVES VIA CART WITH FARZAD CABALLERODYE MACHINE OPERATOR FOR TRANSPORT TO MEDICAL UNIT.
[2016-09-20 22:20] VITALS: BP 147/71; PULSE 76; RESP 20; TEMP 96.2; O2SAT 95
[2016-09-20 22:21] VITALS: Ht 188 cm; Wt 98.2 kg
[2016-09-20] MEDS: SENNA + DOCUSATE TAB PO SCH (22:51)
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
[2016-09-20] MEDS: ACETAMINOPHEN 500 MG TABLET PO PRN (23:36)
[2016-09-21 04:47] VITALS: BP 142/82; PULSE 76; RESP 20; TEMP 96.7; O2SAT 94
[2016-09-21 05:11] LABS: BASOPHILS % (AUTO) 0.5 % (0-2); EOSINOPHILS # (AUTO) 0.3 T/MM3 (0-0.5); EOSINOPHILS % (AUTO) 4.7 % (0-4); HCT - HEMATOCRIT 30.7 % (41-53); HGB - HEMOGLOBIN 10.1 GM/DL (13.5-17.5); IMMATURE GRANULOCYTE # (AUTO) 0.01 T/MM3 (0.00-0.03); IMMATURE GRANULOCYTE % (AUTO) 0.2 % (0.0-0.5); LYMPHOCYTES # (AUTO) 1.6 T/MM3 (1-4.8); LYMPHOCYTES % (AUTO) 27.9 % (23-45); MEAN CORPUSCULAR HGB 32.3 UUG (26-34); MEAN CORPUSCULAR HGB CONC(MCHC 32.9 GM/DL (31-37); MEAN CORPUSCULAR VOLUME 98.1 UM3 (80-100); MEAN PLATELET VOLUME 10.6 UM3 (9.4-12.4); MONOCYTES # (AUTO) 0.5 T/MM3 (0-0.8); MONOCYTES % (AUTO) 9.5 % (0-9.0); NEUTROPHILS #(AUTO)-ABSOLUTE 3.3 T/MM3 (1.8-7.7); NEUTROPHILS % (AUTO) 57.2 % (33-66); RED BLOOD COUNT 3.13 M/MM3 (4.50-5.90); WBC - WHITE BLOOD COUNT 5.7 T/MM3 (4.5-11.0)
[2016-09-21 05:33] LABS: ALBUMIN 3.3 G/DL (3.5-5.0); ALBUMIN/GLOBULIN RATIO 0.9 RATIO (1.1-2.2); ALKALINE PHOSPHATASE 76 U/L (38-126); ALT (SGPT) 51 U/L (21-72); ANION GAP 9 MEQ/L (5-15); AST (SGOT) 45 U/L (17-59); BUN/CREATININE RATIO 17 RATIO (6-26); CALCIUM 8.4 MG/DL (8.4-10.2); CHLORIDE 101 MEQ/L (98-107); CO2 - CARBON DIOXIDE 28 MEQ/L (22-30); CREATININE 1.3 MG/DL (0.8-1.5); GLOMERULAR FILTRATION RATE 52; GLUCOSE 104 MG/DL (75-110); MAGNESIUM 2.6 MG/DL (1.6-2.3); PHOSPHORUS 3.3 MG/DL (2.5-4.5); POTASSIUM 4.3 MEQ/L (3.6-5); SODIUM 138 MEQ/L (134-144); TOTAL PROTEIN 6.8 G/DL (6.3-8.2)
[2016-09-21 07:17] VITALS: BP 160/83; PULSE 73; RESP 16; TEMP 97.6; O2SAT 94
[2016-09-21] MEDS ORDERED: OMEPRAZOLE 20 MG CAPSULE PO SCH (07:30)
[2016-09-21] MEDS ORDERED: POTASSIUM CHLORIDE 20 MEQ TABLET PO SCH (08:00)
[2016-09-21] MEDS: CLONAZEPAM 0.5 MG TABLET PO SCH ×2 (08:07→15:08)
[2016-09-21] MEDS: SENNA + DOCUSATE TAB PO SCH (08:08)
[2016-09-21] MEDS: BISACODYL 10 MG SUPPOSITORY RECTALLY PRN ×2 (08:08→15:00)
--- NOTE | 2016-09-21 08:27 | NUR ---
Status Patient alert and oriented. Currently up in chair, stands with 2. Patient continues to complain of pain to RUQ. States the Tylenol didn't help last night. Patient given MOM and suppository per PRN orders. Clear liq diet.
[2016-09-21] MEDS ORDERED: ALLOPURINOL 100 MG TABLET PO SCH (09:00)
[2016-09-21] MEDS ORDERED: ESCITALOPRAM 10 MG TABLET PO SCH (09:00)
[2016-09-21] MEDS ORDERED: POLYETHYL.GLYCOL 3350 PACKET 17gm PO SCH (09:00)
[2016-09-21] MEDS ORDERED: FUROSEMIDE 40 MG TABLET PO SCH (09:00)
[2016-09-21] MEDS ORDERED: ASPIRIN *EC* 81mg TABLET PO SCH (09:00)
--- NOTE | 2016-09-21 10:23 | DI ---
EXAM: CT ABD/PELVIS W/CONTRAST ONLY DATE: 09/20/2016 LOCATION OF DICTATION: Imaging center HISTORY: ITS.REASON: RLQ pain, worsened from prior COMPARISON: Prior examination dated 09/16/2016 TECHNIQUE: CT images were obtained of the abdomen and pelvis with IV contrast. The current CT scan was performed using radiation dose-reduction techniques. FINDINGS: LUNG BASES: Small bilateral pleural effusions are identified with subjacent atelectasis in both lower lobes. The heart is enlarged. LIVER: Stable size and contour showing mild fatty infiltration and no discrete lesions. SPLEEN: Stable size and contour appearing homogeneous. GALLBLADDER: Minimal cholelithiasis. PANCREAS: Mildly atrophic demonstrating a stable 12 mm cyst in the tail of the pancreas no enhancing lesions or ductal dilatation. ADRENAL GLANDS: Not enlarged. 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 STOMACH BOWEL LOOPS: Stomach is moderately distended with ingested material. The bowel loops are normal caliber, there is no evidence of mechanical bowel obstruction or acute inflammatory bowel process. Scattered diverticula are seen along the correlated colon without evidence of diverticulitis. There is moderate constipation. An abnormal appendix is not seen. URINARY BLADDER: Unremarkable. PROSTATE: Surgically absent. OSSEOUS STRUCTURES: Median sternotomy wires are partially visualized. The osseous structures are stable again showing advanced degenerative disc changes in the lumbar spine. No acute fractures or focal destructive lesions are identified. PERITONEAL CAVITY: No free air or free fluid ABDOMINAL WALL: Stable IMPRESSION: 1. Cardiomegaly with small bilateral pleural effusions and subjacent atelectasis left greater than right. 2. Cholelithiasis with no CT evidence of acute cholecystitis. 3. No obstructive uropathy or obvious acute inflammatory changes involving the kidneys. 4. 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 5. No evidence of bowel obstruction or acute inflammatory bowel process. There is moderate constipation. Diverticulosis coli is evident. 6. Prostate gland is surgically absent. 7. Stable 12 mm cyst in the tail of the pancreas. This may represent small pseudocyst. A pulmonary report was provided by [facility]. .
[2016-09-21 11:32] LABS: INR 2.5 (0.76-1.04); PROTHROMBIN TIME 27.2 SEC (9.31-12.49)
[2016-09-21 12:00] VITALS: BP 148/81; PULSE 74; RESP 18; O2SAT 95
[2016-09-21] MEDS ORDERED: WARFARIN 7.5 MG TABLET PO SCH (12:00)
[2016-09-21] MEDS ORDERED: FLEET PHOSPHO-SODA 133 ML ENEMA RECTALLY ONE (12:45)
--- NOTE | 2016-09-21 14:21 | DI ---
Indication: ITS.REASON: abd pain, ? Constipation Procedure: KUB W/UPRIGHT: Encounter: Initial Comparison: Abdominal CT from the previous day Technique: Upright and supine AP abdominal radiographs were obtained. Findings: Nonobstructive bowel gas pattern. Mild to moderate colonic gas and stool. No intraperitoneal free air. No acute osseous abnormality. Degenerative spondylosis of the spine. 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 Basilar atelectasis and potential small left pleural effusion seen within the visualized lower chest. Surgical clips seen within the pelvis. Impression: Mild to moderate colonic gas and stool with a nonobstructive bowel gas pattern. .
--- NOTE | 2016-09-21 15:00 | NUR ---
Intake Patient tolerated beef pot roast and mashed potatoes, 100%. Denies nausea. Up to chair for meals.
[2016-09-21 15:08] VITALS: BP 180/74; PULSE 77; RESP 22; TEMP 97.1; O2SAT 94
[2016-09-21] MEDS: ACETAMINOPHEN 500 MG TABLET PO PRN (15:10)
[2016-09-21] MEDS ORDERED: POLY119P3 PO (18:09)
[2016-09-21] MEDS ORDERED: HYDR-4246 PO (18:14)
[2016-09-21] MEDS ORDERED: BISA10SU61 RECTALLY (18:17)
--- NOTE | 2016-09-21 18:36 | PDOCECFAO ---
Admission Orders Admission Orders Admit to: [facility] Allergies: Coded Allergies: morphine (Verified Allergy, Intermediate, N/V, 09/20/16) Admitting Diagnosis Right Lower Quadrant Abdominal Pain/Constipation Admitting Physician Elsa Barber MD Code Status Do Not Resuscitate Anticipated LOS: Greater than 30 days Rehab Prognosis: Fair Diet: Regular Wound/Incision Care: Not applicable May use Facility Protocol /SO: Yes May Have Flu Vaccine: Yes Intermediate Certification I certify that SNF services are required to be given on an Inpatient basis because of the patients need for shelter care on a continuing basis for the condition(s) for which he/she received inpatient hospital services prior to his/her transfer to the SNF. SNF inpatient care is necessary for the following reasons Not Applicable Cardiac or Respiratory Arrest In Event of Arrest: Do Not Start CPR Resident is Aware of Diagnosis: No Additional Orders: Follow-up with Dr. Harris next week ELSA BARBER MD Sep 21, 2016 18:36
--- NOTE | 2016-09-21 19:15 | NUR ---
Discharge Patient discharged to [facility]. Report called to Vera OROSCO. Questions answered. Orders gone over with daughter.
[2016-09-21] MEDS ORDERED: PRAVASTATIN 40 MG TABLET PO SCH (22:00)
== END 2016-09-21 19:15 ==
LOC: ED 19:05 → MED 21:10 → EDHOLD 21:10
PROVIDERS: ADMIT Internal Medicine; ATTEND Internal Medicine
DX: K59.00 Constipation, unspecified (principal); R10.31 Right lower quadrant pain; G89.29 Other chronic pain; Z79.899 Other long term (current) drug therapy; F03.90 Unspecified dementia, unspecified severity, without behavioral disturbance, psychotic disturbance, mood disturbance, and anxiety; E78.00 Pure hypercholesterolemia, unspecified; I48.2 Chronic atrial fibrillation; I25.10 Atherosclerotic heart disease of native coronary artery without angina pectoris; K21.9 Gastro-esophageal reflux disease without esophagitis; I27.2 Other secondary pulmonary hypertension; F41.9 Anxiety disorder, unspecified; R25.1 Tremor, unspecified; Z95.1 Presence of aortocoronary bypass graft; Z66 Do not resuscitate; Z79.82 Long term (current) use of aspirin; Z79.01 Long term (current) use of anticoagulants; Z86.19 Personal history of other infectious and parasitic diseases
CPT/HCPCS: 36415; 51701; 74020; 74177; 80053; 81003; 83690; 83735; 84100; 85025; 85610; 85652; 86140; 96361; 96374; 99284; A9270; G0378; J0780; J7030; J7050; Q9967; 99218

== ENCOUNTER → 2016-09-27 | Outpatient (CLI) | payer MEDICARE, BC ==
[~2016-09-27] MED LIST changes: +ASPI-557 PO; -ASPI81TA2 PO; +BISA10SU61 RECTALLY; -CETI-115 PO; +CETI10CA19 PO; -HYDR-347 PO; +HYDR-4010 PO; +HYDR-4246 PO; -OMEP20CA4 PO; +P-EP-93 PO; +POLY119P3 PO
--- NOTE | 2016-09-27 15:37 | DI ---
Indication: ITS.REASON: BACK PAIN; LEG WEAKNESS PROCEDURE: LUMBAR SPINE 3 VIEWS: Encounter: Initial Comparison: None Findings: Alignment of the lumbar spine is within normal limits. No acute fracture or subluxation. Posterior decompression from L2 through L5. Chronic appearing mild anterior wedging of L1-L4 along with the visualized lower thoracic vertebra. Moderate to severe disk space narrowing at L2-L3 with mild disk space loss at L3-L4 and moderate disk height loss at L4-L5 and L5-S1. Degenerative facet disease right greater than left throughout the lumbar spine. Impression: Degenerative and postoperative changes as above. .
--- NOTE | 2016-09-27 15:38 | DI ---
Indication: ITS.REASON: BACK PAIN; LEG WEAKNESS PROCEDURE: THORACIC SPINE 2 VIEW: Encounter: Initial Comparison: None Findings: Alignment of the thoracic spine is within normal limits. No acute fracture or subluxation seen. Sternotomy wires and a anesthetic mitral valve are noted incidentally. Mild bony demineralization. Mild age-appropriate degenerative disk disease. Limited visualization of the upper thoracic vertebrae on the lateral view. Impression: No acute osseous abnormality. .
--- NOTE | 2016-09-27 15:39 | DI ---
Indication: ITS.REASON: BACK PAIN; LEG WEAKNESS PROCEDURE: CERVICAL SPINE 3 VIEWS OR LESS: Encounter: Initial Comparison: CT cervical spine dated January 22, 2014 Findings: Alignment of the cervical spine is stable with straightening and loss of the normal lordosis. The C7 and T1 vertebra are not visualized on the lateral view and cannot be evaluated. No acute fracture from C1 through C6. Mild disk space narrowing at C3-C4, C4-C5 and C5-C6. Odontoid view is limited due to positioning. Multilevel degenerative uncovertebral and facet changes throughout the cervical spine appears moderate to severe with bilateral carotid artery calcifications. Impression: No acute fracture with limitations as above. .
== END ==
LOC: IMA 14:32
PROVIDERS: ATTEND Psychiatry & Neurology Neurology
DX: M47.896 Other spondylosis, lumbar region (principal); M51.36 Other intervertebral disc degeneration, lumbar region; M47.892 Other spondylosis, cervical region; I65.23 Occlusion and stenosis of bilateral carotid arteries; Z91.81 History of falling; Z98.890 Other specified postprocedural states; M54.9 Dorsalgia, unspecified; R53.1 Weakness

== ENCOUNTER 2016-10-03 05:34 | Emergency (ER) | payer MEDICARE, BC ==
[~2016-10-03] VITALS: Ht 188 cm; Wt 98.7 kg
[2016-10-03 05:34] VITALS: Ht 188 cm; Wt 98.7 kg
[~2016-10-03 05:34] MED LIST changes: -CETI10CA19 PO; -HYDR-4010 PO; -P-EP-93 PO
--- OUTSIDE RECORDS SUMMARY | 2016-10-03 05:39 | XMS REPORT | Continuity of Care Document ---
Author Author [facility] Organization [facility] Address Unknown Phone Unavailable Support Name Relationship Address Phone ASHLYN AVILA MD Caregiver [address] [place] [address] LARRY REYES II, MD Caregiver [address] [facility] [address] [place] [phone] CALEB FLORES DPOA Next Of Kin [address] [place] [address] DA Advance Directives Directive Response [...] A DAY 10/24/13 03/20/14 Discontinued Green Tea [place] Extract Unknown Dose PO 11/22/13 11/25/13 Discontinued [...] ABOUT YOUR CPM PLEASE CALL [facility] AT [phone]. Condition at time of discharge: Good Occupational [...] F (96.8 - 99.1) Temperature (Calculated Celsius) 35.35021 degrees C (36.0 - 37.3) Temperature Source [...] 23, 2013 8:08pm LAB TEST FORM REQUEST [id number] - Lymphocytes # (Auto) March 20, 2014 [...] 20, 2014 5:12am 11.2 % H 0-9.0 ZP-Bma-V-Type Natriuretic Peptide January 04, 2013 7:55pm 2330 [...] 2009 11:05am Not done - NO [facility] ORDERED Thyroid Stimulating Hormone (TSH) July 04, [...] Has specimen been collected/obtained? Y Urine Specific [place] March 19, 2014 2:05pm 1.010 L - [...] 2009 8:56pm Name: ANNALEE LINDA Unit #: [id number] : 1925 Sex: M [facility] [place]: ED DOS: 03/19/14 Signed Report #: [id number] DIAGNOSTIC IMAGING REPORT TYPE OF EXAM: CT [...] 01/22/14 Encounters Encounter Location Date/Time Discharged Inpatient [facility] 03/19/14 3:08pm Departed Emergency Room [facility] 01/22/14 8:53am Registered Clinic [facility] 12/31/13 10:28am Recent Diagnosis Urinary tract infection Elevated INR Weakness
--- OUTSIDE RECORDS SUMMARY | 2016-10-03 05:39 | XMS REPORT | Continuity of Care Document ---
Author Author [facility] Organization [facility] Address Unknown Phone Unavailable Support Name Relationship Address Phone VICTORIA TUCKER MD Caregiver [facility] [address] [place] [address] Unavailable LARRY REYES II, MD Caregiver [address] [place] [address] [place], [place] [phone] MONIKA HILL MD Caregiver [address] [place] [address] [address] [place] [phone] CALEB FLORES DPOA Next Of Kin [address] [place] [address] DA Insurance Providers Payer Name Policy Number Subscriber Name Relationship Medicare [id number] Annalee Tabares 20 Self [facility] [id number] Annalee Tabares 18 Self Advance Directives Directive [...] A DAY 10/24/13 03/20/14 Discontinued Green Tea [place] Extract Unknown Dose PO 11/22/13 11/25/13 Discontinued [...] F (96.8 - 99.1) Temperature (Calculated Celsius) 36.53426 degrees C (36.0 - 37.3) Temperature Source [...] 23, 2013 8:08pm LAB TEST FORM REQUEST [id number] - Lymphocytes # (Auto) June 10, 2014 [...] 10, 2014 5:28am 11.9 % H 0-9.0 TM-Mbi-Z-Type Natriuretic Peptide January 04, 2013 7:55pm 2330 [...] 27, 2009 11:05am Not done - NO [facility] ORDERED Thyroid Stimulating Hormone (TSH) [...] Has specimen been collected/obtained? Y Urine Specific [place] June 08, 2014 7:20pm 1.010 L - [...] 2009 8:56pm Name: ANNALEE TABARES Unit #: [id number] : 1925 Sex: M [place] [facility] [place]: 06/08/14 Signed Report #: [id number] DIAGNOSTIC IMAGING REPORT TYPE OF EXAM: CT [...] injury. There is a preliminary report by [employer] . Procedures No known history of procedures. Encounters Encounter Location Date/Time Discharged Inpatient [facility] 06/09/14 6:15pm Discharged Inpatient [facility] 03/19/14 3:08pm Recent Diagnosis Bradycardia Confusion Weakness CAD (coronary artery disease) Atrial fibrillation with slow ventricular response PVC's (premature ventricular contractions) Pulmonary hypertension Acute otitis media with effusion Acute otitis externa of right ear Anemia
--- OUTSIDE RECORDS SUMMARY | 2016-10-03 05:39 | XMS REPORT | Continuity of Care Document ---
Author Author [facility]IVE Organization [facility] Address Unknown Phone Unavailable Support Name Relationship Address Phone LARRY REYES II, MD Caregiver [address] [place] [address] [address] [place], [place] [phone] MARTHA MOODY MD Caregiver [facility] PLASTIC SURGERY [address] [place] [address] [address] [place], [place] [phone] CALEB FLORES DPOA Next Of Kin [address] [place] [address] DA Insurance Providers Payer Name Policy Number Subscriber Name Relationship Medicare [id number] Annalee Tabares 20 Self [facility] [id number] Annalee Tabares 20 Self Advance Directives Directive [...] A DAY 10/24/13 03/20/14 Discontinued Green Tea [place] Extract Unknown Dose PO 11/22/13 11/25/13 Discontinued [...] Discharge Date 06/10/14 7:00pm Disposition 02 TO [facility] Condition at Discharge Stable Instructions/Education Provided [...] F (96.8 - 99.1) Temperature (Calculated Celsius) 36.89823 degrees C (36.0 - 37.3) Temperature Source [...] 23, 2013 8:08pm LAB TEST FORM REQUEST [id number] - Lymphocytes # (Auto) July 16, 2014 [...] % H 0-9.0 COMMENT [facility] WILL CALL HU-Lmv-O-Type Natriuretic Peptide January 04, 2013 7:55pm 2330 [...] 2014 7:59am 45.6 % N 33-66 COMMENT [facility] WILL CALL Parathyroid Hormone (Intact) March 22, 2010 10:29am 40.9 PG/ML N 8.2- 83.5 Percent Iron Saturation June 10, 2014 5:28am 21 % N 13-59 Phosphorus Level March 22, 2010 10:29am 3.8 MG/DL N 2.5-4.5 Platelet Count July 16, 2014 7:59am 143 T/MM3 N 130-400 COMMENT [facility] WILL CALL Potassium Level July 16, 2014 [...] 2014 7:59am 43.0 FL N 36.9-50.2 COMMENT [facility] WILL CALL Reactive Lymphocytes # January 04, 2013 7:55pm 0.1 T/MM3 H 0-0 Reactive Lymphocytes % January 04, 2013 7:55pm 1.0 % H 0-0 Red Blood Count July 16, 2014 7:59am 3.73 M/MM3 L 4.50-5.90 COMMENT [facility] WILL CALL Respiratory Syncytial Virus Rapid July [...] 27, 2009 11:05am Not done - NO [facility] ORDERED Thyroid Stimulating Hormone (TSH) June [...] Has specimen been collected/obtained? Y Urine Specific [place] June 08, 2014 7:20pm 1.010 L - [...] 2009 8:56pm Name: ANNALEE TABARES Unit #: [id number] : 1925 Sex: M Loc / Svc: [facility] DOS: 07/15/14 Signed Report #: [id number] DIAGNOSTIC IMAGING REPORT TYPE OF EXAM: US [...] MD Encounters Encounter Location Date/Time Registered Clinic [facility] 07/15/14 2:25pm Discharged Inpatient [facility] 06/09/14 6:15pm
--- OUTSIDE RECORDS SUMMARY | 2016-10-03 05:40 | XMS REPORT | Continuity of Care Document ---
Author Author [facility] Organization [facility] Address Unknown Phone Unavailable Support Name Relationship Address Phone PATY ROBLES Caregiver [facility] [address] [place] [address] LARRY REYES II, MD Caregiver [address] [place] [phone] CALEB FLORES DPOA Next Of Kin [address] [place] [address] DA Insurance Providers Payer Name Policy Number Subscriber Name Relationship Medicare [id number] Annalee Tabares 20 Self [facility] [id number] Annalee Tabares 18 Self Advance Directives Directive [...] TWICE A DAY 10/24/13 Active Green Tea [place] Extract Unknown Dose PO 11/22/13 11/25/13 Discontinued [...] F (96.8 - 99.1) Temperature (Calculated Celsius) 36.86698 degrees C (36.0 - 37.3) Pulse Rate [...] 27, 2009 11:05am Not done - NO [facility] ORDERED Thyroid Stimulating Hormone (TSH) [...] Has specimen been collected/obtained? Y Urine Specific [place] September 26, 2013 1:15am 1.010 L - [...] 23, 2013 8:08pm LAB TEST FORM REQUEST [id number] - EKG March 30, 2009 7:20pm Complete [...] January 22, 2014 8:55am < 2 0-7 JV-Yon-Q-Type Natriuretic Peptide January 04, 2013 7:55pm 2330 PG/ML H 0- 175 Rule in cut points: <50 years old=450; 50-75 years old=900; >75 years old=1800; When utilizing ProBNP rule-in cut points, adjustment for impaired renal function is typically not required. Blood Culture Blood September 26, 2013 1:05am Strep Dysgalact Sp Equisimilis Gram Stain Leg-Right Upper March 30, 2009 8:56pm Name: ANNALEE TABARES Unit #: [id number] : 1925 Sex: M Loc / Svc: ED DOS: 01/22/14 Signed Report #: [id number] DIAGNOSTIC IMAGING REPORT TYPE OF EXAM: CT [...] Encounters Encounter Location Date/Time Departed Emergency Room [facility] 01/22/14 8:53am Registered [facility] 12/31/13 10:28am Registered [facility] 12/17/13 8:25am Registered [facility] 12/10/13 10:43am Registered [facility] 12/05/13 10:18am Registered [facility] 12/02/13 10:04am Registered [facility] 11/29/13 10:24am Registered [facility] 11/21/13 10:04am Registered [facility] 11/18/13 10:09am Registered Clinic [facility] 11/15/13 10:06am Registered Clinic [facility] 11/11/13 10:20am Registered Clinic [facility] 11/08/13 9:58am Registered Clinic [facility] 11/05/13 10:13am Registered Clinic [facility] 10/31/13 11:08am Registered Clinic [facility] 10/28/13 9:06am Recent Diagnosis
--- OUTSIDE RECORDS SUMMARY | 2016-10-03 05:40 | XMS REPORT | Continuity of Care Document ---
Author Author [facility] Organization [facility] Address Unknown Phone Unavailable Support Name Relationship Address Phone VICTORIA TUCKER MD Caregiver [address] [place] [address] Unavailable MICHAEL BARBER MD Caregiver [address] [place] [address] Unavailable DWAINE HARRIS MD Caregiver [address] [place] [address] Unavailable TIFFANIE RAINES MD Caregiver [address] [place] [address] Unavailable CALEB FLORES DPOA Next Of Kin [address] [place] [address] DA Insurance Providers Guarantor Annalee Tabares Address [address] [place] [address] Email DENIED 16 Payer [facility] Policy Number [id number] Subscriber's Name Annalee Tabares Relationship 18 Self Group Number [id number] Payer Medicare Policy Number [id number] Subscriber's Name Annalee Tabares Relationship 18 Self Advance Directives Directive Response Recorded Date/Time Advanced Directives Type Living Will DPOA for Healthcare 10/22/13 8:46am Dr Ordered Resuscitation Status Do Not Resuscitate 09/26/13 4:42am Resuscitation Documents on File Yes 10/22/13 8:46am DPOA for Healthcare Only Candy Riddle 09/20/16 11:07pm Living Will Yes 09/20/16 10:22pm Problems Active Problems Medical Problem Onset Date [...] Chronic Past Problems Medical Problem Onset Date Constipation Unknown Facial abrasion Unknown Fall Unknown Fecal impaction of colon Unknown Right lower quadrant abdominal pain Unknown Scalp hematoma Unknown Medications Current Home [...] Mg Tablet 500 Mg Oral Daily Aspirin (Aspir 81) 81 Mg Tablet.dr 81 Mg Oral Daily 09/20/16 Bisacodyl (Dulcolax) 10 Mg Supp.rect 1 Supp Rectally Twice A Day as needed for Constipatioin 14 Suppository 09/21/16 Clonazepam (Klonopin) 0.5 Mg Tablet 0.5 Mg Oral Three Times A Day 03/30/09 Escitalopram Oxalate (Lexapro) 10 Mg Tablet 10 Mg Oral Daily Ferrous Sulfate 325 Mg Tablet 325 Mg Oral Daily 06/26/16 Furosemide (Lasix) 40 Mg Tablet 40 Mg Oral Daily 06/26/16 Hydrocodone/Acetaminophen ([place] 5-325 Tablet) 5-325 Tablet 1 Tab Oral Twice A Day 30 Tablet the patient may have an extra tablet once daily prn for pain 09/21/16 Magnalife 1 Applic Topically Bedtime RELAXING LEG CREAM 09/16/16 Mirabegron (Myrbetriq) 25 Mg Tab.er.24h 25 Mg Oral Daily 01/28/16 Multivits-Min/Fa/Lycopene/Lut (Centrum Silver Tablet) 1 Each Tablet 1 Tab Oral Daily 06/08/14 Polyethylene Glycol 3350 (Miralax) 119 Gm Powder 17 G Oral Twice A Day 1 Bottle 09/21/16 Potassium Chloride 20 Meq Tablet.er 20 Meq [...] Tablet, 1 Tab Oral Daily 03/30/09 Discontinued Cetirizine Hcl (Zyrtec) 10 Mg Tablet, 10 Mg Oral Daily 06/08/14 Discontinued Cyanocobalamin (Vitamin B-12) 1,000 Mcg Tablet, 1 Tab Oral Daily 03/30/09 Discontinued Diphenhydramine Hcl (Antihistamine Allergy) 25 Mg Capsule, 25 Mg Oral 01/05 Discontinued Folic Acid 1 Mg Tablet, 1 Tab Oral Daily 03/30/09 Discontinued Glycerin 1 Each Supp.rect, 1 Supp Rectally Twice A Day as needed for Constipation 09/20/16 Discontinued Green Tea [place] Extract (Green Tea) 1 Cap Capsule, Unknown Dose Oral Discontinued Hydrocodone Bit/Acetaminophen (Lortab 7.5) 1 Udtab Tablet, 1 Udtab Oral As Needed 07/04/12 Discontinued Hydrocodone/Acetaminophen ([place] 7.5-325 Tablet) 7.5-325 Tablet, 1 Tab Oral Twice A Day 06/26/16 Discontinued Hydrocort 0.2% Cream , As Needed 07/04/12 Discontinued Loratadine (Claritin) 10 Mg Capsule, 10 Mg Oral Daily 07/04/12 Discontinued Loratadine (Claritin) 10 Mg Tablet, 1 Tab Oral Daily 03/30/09 Discontinued Magnesium Hydroxide (Milk Of Magnesia) 400 Mg/5 Ml Oral.susp, 30 Mg Oral Twice A Day as needed for Constipation 09/20/16 Discontinued Omeprazole (Prilosec) 20 Mg Capsule.dr, 20 Mg Oral Daily 03/19/14 Discontinued Polyethylene Glycol 3350 (Miralax) 119 Gm Powder, 17 G Oral Daily 09/20/16 Discontinued Potassium Chloride (Klor-Con M20) 20 Meq [...] Problem Response Recorded Date/Time Onset Date Status Reason for Hospitalization constipation, abdominal pain 09/21/2016 6:14pm Not Applicable Not Applicable Chewing Tobacco Status No 10/22/2013 8:47am Not Applicable Not Applicable Hx Substance Use No 09/20/2016 8:10pm Not Applicable Not Applicable Hx Alcohol Use No 09/20/2016 8:10pm Not Applicable Not Applicable Has the pt used tobacco in the last 12 months No 09/20/2016 10:25pm Not Applicable Not Applicable Tobacco Usage none 06/09/2014 11:53am Not Applicable Not Applicable Query Response Start Date Stop Date Smoking Status Never smoker Hospital Discharge Instructions Instructions: Care Instructions: I was in the hospital because (patient own words): pain on my side Discharge Diet: diet as tolerated Discharge Activity: Up with assist as tolerated Follow Up Appointments: Follow-up with Dr. Harris Pending Lab / Results: No Pending Lab Patient Instructions: Please make sure the patient is having a good bowel movement every day No milk of magnesia due to elevated magnesium level Expected Signs/Symptoms: N/a Notify Physician If: Worsening abdominal pain, nausea and vomiting, fevers, constipation not responsive to medications During Business Hours:: Please call the physician's office at [phone] After Business Hours:: Please call [phone] and have the dishtank operator page the physician. Pain Management/Treatment: Tylenol and/or [place] Pain Scale Utilized to Educate Patient: 0-10 Pain Scale Wound/Incision Care: Not applicable Condition at time of discharge: Good Plan of Care Discharge Date 09/21/16 7:15pm Disposition 04 TO [facility] HOME/FACILITY Instructions/Education Provided Constipation (DC) Abdominal Pain (ED) Prescriptions See Medication Section Care Plan and Goals See Discharge Instructions Section Functional Status Query Response Date Recorded Mobility Status Transfer w/assist September 20, 2016 11:11pm Assistive Devices Wheelchair September 20, 2016 11:11pm Activity Limitations Weakness Fatigue Shortness of breath September 20, 2016 11:11pm Feeding Ability Assist September 20, 2016 11:11pm Toileting Ability Dependent September 20, 2016 11:11pm Grooming Ability Assist September 20, 2016 11:11pm Dressing Ability Assist September 20, 2016 11:11pm Driving Ability Dependent September 20, 2016 11:11pm Housework Ability Dependent September 20, 2016 11:11pm Meal Preparation Ability Assist September 20, 2016 11:11pm Stair Climbing Ability Dependent September 20, 2016 11:11pm Ability to complete ADL's impeded by No change September 20, 2016 11:11pm Cognitive/Perceptual Impairments Impaired vision Impaired hearing Chronic confusion Imp. verbal communication September 20, 2016 11:11pm Visual Assistive Devices Glasses September 20, 2016 11:11pm Allergies, Adverse Reactions, Alerts Allergen Type Severity Reaction Status Last Updated Morphine Allergy Intermediate N/V Active 09/20/16 Immunizations Query Response on File Recorded Date/Time Hx Influenza Vaccination Y 201509/20/16 10:25pm Hx Pneumococcal Vaccination Y 201409/20/16 10:25pm Hx Influenza Vaccination Y 201509/20/16 10:25pm Hx Tetanus Diptheria Y 01/22/14 06/26/16 6:32pm Influenza Vaccine Hx 03/201609/21/16 12:24pm Vital Signs Acute Vital Signs Vital Response Date/Time Temperature (Fahrenheit) 97.1 deg F (96.8 - 99.1) 09/21/2016 3:08pm Temperature (Calculated Celsius) 36.88848 degrees C (36.0 - 37.3) 09/21/2016 3:08pm Pulse Rate (adult) 77 bpm (60 - 100) 09/21/2016 3:08pm Respiratory Rate 22 breaths/min (10 - 20) 09/21/2016 3:08pm O2 Sat by Pulse Oximetry 94 % (90 - 100) 09/21/2016 3:08pm Oxygen Delivery Method Room Air 09/21/2016 3:08pm Blood Pressure 180/74 mm Hg 09/21/2016 3:08pm Blood Pressure Source Automatic Cuff 09/21/2016 3:08pm Height (Feet) 6 feet 09/20/2016 11:07pm Height (Inches) 2.00 inches 09/20/2016 11:07pm Weight (Kilograms) 98.200 kg 09/21/2016 9:23am Body Mass Index (BMI) 28.3 09/20/2016 10:21pm Results Laboratory Results Test Name Result Units Flags Reference Collection Date/Time Result Date/ Time Comments Urinalysis Comment MICROSCOPIC NOT IND. 07/15/2016 11:25am 2016 12:56pm Activated Partial Thromboplast Time 34.3 SEC 24-36 09/16/2016 8:22pm 8:54pm White Blood Count 5.7 T/MM3 4.5-11.0 09/21/2016 4:09/21/2016 5: 11am Red Blood Count 3.13 M/MM3 L 4.50-5.90 09/21/2016 4:09/21/2016 5: 11am Hemoglobin 10.1 GM/DL L 13.5-17.5 09/21/2016 4:09/21/2016 5:11am Hematocrit 30.7 % L 41-53 09/21/2016 4:09/21/2016 5:11am Mean Corpuscular Volume 98.1 UM3 80-100 09/21/2016 4:09/21/2016 5: 11am Mean Corpuscular Hemoglobin 32.3 UUG 26-34 09/21/2016 4:2016 5:11am Mean Corpuscular Hemoglobin Concent 32.9 GM/DL 31-37 09/21/2016 4:09/21/2016 5:11am RDW Standard Deviation 48.3 FL 36.9-50.2 09/21/2016 4:09/21/2016 5 :11am Platelet Count 127 T/MM3 L 130-400 09/21/2016 4:09/21/2016 5:11am Mean Platelet Volume 10.6 UM3 9.4-12.4 09/21/2016 4:09/21/2016 5: 11am Neutrophils (%) (Auto) 57.2 % 33-66 09/21/2016 4:09/21/2016 5: 11am Lymphocytes (%) (Auto) 27.9 % 23-45 09/21/2016 4:09/21/2016 5: 11am Monocytes (%) (Auto) 9.5 % H 0-9.0 09/21/2016 4:09/21/2016 5:11am Eosinophils (%) (Auto) 4.7 % H 0-4 09/21/2016 4:09/21/2016 5:11am Basophils (%) (Auto) 0.5 % 0-2 09/21/2016 4:09/21/2016 5:11am Immature Granulocyte % (Auto) 0.2 % 0.0-0.5 09/21/2016 4:2016 5:11am Absolute Neutrophils (auto) 3.3 T/MM3 1.8-7.7 09/21/2016 4:2016 5:11am Absolute Lymphocytes (auto) 1.6 T/MM3 1-4.8 09/21/2016 4:2016 5:11am Absolute Monocytes (auto) 0.5 T/MM3 0-0.8 09/21/2016 4:09/21/2016 5:11am Absolute Eosinophils (auto) 0.3 T/MM3 0-0.5 09/21/2016 4:2016 5:11am Absolute Basophils (auto) 0.0 T/MM3 0-0.2 09/21/2016 4:09/21/2016 5:11am Absolute Immature Granulocyte (auto 0.01 T/MM3 0.00-0.03 09/21/2016 4: 09/21/2016 5:11am Prothromb Time International Ratio 2.50 H 0.76-1.04 09/21/2016 11:1909/21/2016 11:32am THERAPUTIC RANGE=2.00-3.00 FOR ANTI-THROMBOSIS THERAPUTIC RANGE=2.50-3.50 FOR IMPLANTED VALVE Icterus Index < 2 0-7 09/21/2016 4:09/21/2016 5:33am Chemistry Specimen Hemolysis < 15 0-25 09/21/2016 4:09/21/2016 5 :33am 0-25: Specimen Exhibited No Hemolysis. Turbidity < 20 0-20 09/21/2016 4:09/21/2016 5:33am Sodium Level 138 MEQ/L 134-144 09/21/2016 4:09/21/2016 5:33am Potassium Level 4.3 MEQ/L 3.6-5 09/21/2016 4:09/21/2016 5:33am Chloride Level 101 MEQ/L 98-107 09/21/2016 4:09/21/2016 5:33am Carbon Dioxide Level 28 MEQ/L 22-30 09/21/2016 4:09/21/2016 5: 33am Anion Gap 9 MEQ/L 5-15 09/21/2016 4:09/21/2016 5:33am Blood Urea Nitrogen 22.0 MG/DL H 9-20 09/21/2016 4:09/21/2016 5: 33am Creatinine 1.3 MG/DL 0.8-1.5 09/21/2016 4:09/21/2016 5:33am BUN/Creatinine Ratio 17 RATIO 6-26 09/21/2016 4:09/21/2016 5:33am Glomerular Filtration Rate Calc 52 09/21/2016 4:09/21/2016 5: 33am Glucose Level 104 MG/DL 75-110 09/21/2016 4:09/21/2016 5:33am Calculated Osmolality 269 MOSM/KG 261-280 09/21/2016 4:09/21/2016 5:33am Calcium Level 8.4 MG/DL 8.4-10.2 09/21/2016 4:09/21/2016 5:33am Phosphorus Level 3.3 MG/DL 2.5-4.5 09/21/2016 4:09/21/2016 5:33am Total Bilirubin 1.00 MG/DL 0.20-1.30 09/21/2016 4:09/21/2016 5: 33am Alkaline Phosphatase 76 U/L 38-126 09/21/2016 4:09/21/2016 5:33am Total Protein 6.8 G/DL 6.3-8.2 09/21/2016 4:09/21/2016 5:33am Albumin 3.3 G/DL L 3.5-5.0 09/21/2016 4:09/21/2016 5:33am Globulin 3.5 G/DL 2.4-3.6 09/21/2016 4:09/21/2016 5:33am Albumin/Globulin Ratio 0.9 RATIO L 1.1-2.2 09/21/2016 4:15am 09/21/2016 5:33am Aspartate Amino Transf (AST/SGOT) 45 U/L 17-59 09/21/2016 4:15am 2016 5:33am Alanine Aminotransferase (ALT/SGPT) 51 U/L 21-72 09/21/2016 4:15am 05/2017 5:33am C-Reactive Protein 7.1 MG/L 0-9 09/20/2016 7:50pm 09/21/2016 12:05am Lipase 72 U/L 23-300 09/20/2016 7:50pm 09/20/2016 8:03pm Magnesium Level 2.6 MG/DL H 1.6-2.3 09/21/2016 4:15am 09/21/2016 5:33am Urine Collection Type CLEANCATCH-MIDSTREAM 09/20/2016 8:50pm 2016 9:02pm Urine Color YELLOW YELLOW 09/20/2016 8:50pm 09/20/2016 9:02pm Urine Turbidity CLEAR CLEAR 09/20/2016 8:50pm 09/20/2016 9:02pm Urine Specific [place] 1.015 1.015-1.025 09/20/2016 8:50pm 2016 9:02pm Urine pH 7.0 5.0-8.0 09/20/2016 8:50pm 09/20/2016 9:02pm Urine Leukocyte Esterase NEGATIVE NEGATIVE 09/20/2016 8:50pm 2016 9:02pm Urine Nitrite NEGATIVE NEGATIVE 09/20/2016 8:50pm 09/20/2016 9:02pm Urine Protein NEGATIVE NEGATIVE 09/20/2016 8:50pm 09/20/2016 9:02pm Urine Glucose (UA) NEGATIVE NEGATIVE 09/20/2016 8:50pm 09/20/2016 9: 02pm Urine Ketones NEGATIVE NEGATIVE 09/20/2016 8:50pm 09/20/2016 9:02pm Urine Urobilinogen 0.2 EU/DL NORMAL 09/20/2016 8:50pm 09/20/2016 9: 02pm Urine Bilirubin NEGATIVE NEGATIVE 09/20/2016 8:50pm 09/20/2016 9: 02pm Urine Blood NEGATIVE NEGATIVE 09/20/2016 8:50pm 09/20/2016 9:02pm Urinalysis Comment MICROSCOPIC NOT IND. 09/20/2016 8:50pm 2016 9:02pm Erythrocyte Sedimentation Rate 31 mm/h H 0-15 09/20/2016 7:50pm 2016 5:56pm Sedimentation Rate performed at [facility] Reference Lab, [address] [place] [address] Underwriting Assistant Jane Oliver DO Microbiology Results Procedure Source Organism/Result Collection Date/Time Result Date/Time Result Status Urine Culture Urine, Clean Catch-Midstream MIXED GRAM POSITIVE ORGANISMS 11:25am 07/16/2016 12:42pm Final Name: ANNALEE TABARES Unit #: [id number] : 1925 Sex: M Admit Date: 09/20/16 Loc / Svc: MED Discharge Date: DIAGNOSTIC IMAGING REPORT Report #: [id number] [place], [place] Indication: ITS.REASON: abd pain, ? Constipation Procedure: KUB W/UPRIGHT: Encounter: Initial Comparison: Abdominal CT from the previous day Technique: Upright and supine AP abdominal radiographs were obtained. Findings: Nonobstructive bowel gas pattern. Mild to moderate colonic gas and stool. No intraperitoneal free air. No acute osseous abnormality. Degenerative spondylosis of the spine. 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 Basilar atelectasis and potential small left pleural effusion seen within the visualized lower chest. Surgical clips seen within the pelvis. Impression: Mild to moderate colonic gas and stool with a nonobstructive bowel gas pattern. . Procedures Procedure Status Date Provider(s) Routine venipuncture Completed 06/26/16 Ct head/brain w/o dye Completed 06/26/16 Comprehen metabolic panel Completed 06/26/16 Urinalysis auto w/o scope Completed 06/26/16 Complete cbc w/auto diff wbc Completed 06/26/16 Emergency dept visit Completed 06/26/16 Urinalysis auto w/o scope Completed 07/15/16 Urine culture/colony count Completed 07/15/16 Routine venipuncture Completed 09/16/16 Chest x-ray 1 view frontal Completed 09/16/16 Ct abd & pelv w/contrast Completed 09/16/16 Metabolic panel total ca Completed 09/16/16 Assay of lipase Completed 09/16/16 Complete cbc w/auto diff wbc Completed 09/16/16 Prothrombin time Completed 09/16/16 Thromboplastin time partial Completed 09/16/16 Hydrate iv infusion add-on Completed 09/16/16 Hydrate iv infusion add-on Completed 09/16/16 Ther/proph/diag inj iv push Completed 09/16/16 Tx/pro/dx inj new drug addon Completed 09/16/16 Emergency dept visit Completed 09/16/16 720868"INJECTION, KETOROLAC TROMETHAMINE, PER 15 MG" Completed 09/16/16 205965"INJECTION, ONDANSETRON HYDROCHLORIDE, PER 1 MG" Completed 09/16/16 157476"INFUSION, NORMAL SALINE SOLUTION , 1000 CC" Completed 09/16/16 564050"INFUSION, NORMAL SALINE SOLUTION , 250 CC" Completed 09/16/16 142535"LOW OSMOLAR CONTRAST MATERIAL, 300-399 MG/ML IODINE C Completed Encounters Encounter Location Arrival/Admit Date Discharge/Depart Date Attending Provider Discharged Inpatient (obs) [facility] 09/20/16 9:10pm 09/21/16 7: 15pm MICHAEL BARBER MD Departed Emergency Room [facility] 09/16/16 7:29pm 09/16/16 11: 08pm OCTOBERLÁZARO DO [facility] 07/15/16 12:48pm DWAINE HARRIS MD Departed Emergency Room [facility] 06/26/16 6:00pm 06/26/16 7: 40pm VICTORIA TUCKER MD
[2016-10-03] MEDS ORDERED: ONDANSETRON 4mg/2ml INJECTION IV ONE (05:45)
--- NOTE | 2016-10-03 05:48 | ERPDOC ---
Departure Disposition Decision Date: Oct 03, 2016 Disposition Decision Time: 08:41 (PATY ROBLES DO) Disposition: 01 DISCHARGED HOME, SELF-CARE Impression Impression () Impression: Primary Impression: Scalp hematoma Encounter type: initial encounter Qualified Codes: S00.03XA - Contusion of scalp, initial encounter Additional Impressions: Neck pain Fall Encounter type: initial encounter Qualified Codes: W19.XXXA - Unspecified fall, initial encounter Severity: Mild (PATY ROBLES DO) Condition: Improved Seen By: Physician only (PATY ROBLES DO) Referrals: DWAINE HARRIS MD (Family) 1 Day Patient Instructions: Contusion in Adults (ED), Fall Prevention for Older Adults (ED), Neck Pain (ED) Problems/Meds/Labs Reviewed?: Yes Medications reviewed and manag: Yes (PATY ROBLES DO) Additional Instructions: 1. Rest 2. Follow with your Doctor 3. Continue Home medications 4. Follow with Dr. Harris 5. Return to the ER as needed Follow up care ordered?: Yes Mental Status: Alert, Oriented (PATY ROBLSE DO) HPI - Fall/Injury General Stated Complaint: FALL Time Seen by Provider: 05:42 Source: patient, RN/MD, EMS Exam Limitations: no limitations () HPI - Fall/Injury Initial Comments 89yo man presented to the ER by EMS following a fall at home. Pt has had a recent decline in health; is supposed to call staff when he ambulates. He got up to go pee this AM; did not take his walker and fell en route to the bathroom. Pt now has some neck pain and a large hematoma over the right forehead. Occurred At: home Onset: Rapid Duration: 1 hr Pain Scale: Now & Worst: 5/10 Severity: moderate Injuries/Pain Location: head, neck 1 - Hematoma Context: lost balance Loss of Consciousness: no loss of consciousness Modifying Factors: IMPROVES WITH: cold therapy, immobilization, WORSE WITH: jarring, movement Hx of Similar Symptoms: No () Allergies: Coded Allergies: morphine (Verified Allergy, Intermediate, N/V, 10/03/16) Past History Patient Surgical History Appendectomy () Past Medical History Metabolic: cancer, hypercholesterolemia Cardiac: A-fib, CAD, other Respiratory: other GI: GERD Male: renal insufficiency Neurological: other Musculoskeletal: osteoarthritis Infectious: other Psychological: anxiety () Surgical History General: appendix, back Cardiac: cardiac bypass, other, radio ablation, valve replacement Reproductive/: prostatectomy () Family History Family PMH: FOUND: cancer () Vaccines Hx Influenza Vaccination: Yes (2015) Hx Pneumococcal Vaccination: Yes (2014) Hx Tetanus Diptheria: Yes (01/22/14) () Social History Does patient use chewing tobac: No Second Hand Exposure: No Substance Use Type: does not use Alcohol Intake: none Sexuality: female partner () Review of Systems Musculoskeletal General: pain () Integumentary Comments Bruising () Neurological General: headache () All other Systems All Other Systems: Reviewed and Negative () Physical Exam General General Nourishment: well nourished, well developed, appears stated age, no acute distress, adult, thin General Body Habitus: well groomed () Vitals and Pain First Documented Vital Signs Date Time Temp Pulse Resp B/P Pulse Ox O2 Delivery O2 Flow Rate FiO2 10/03/16 05:34 98.0 74 12 141/97 97 Room Air 10/03/16 06:45 2.00 (PATY ROBLES ) Vitals and Pain Weight: Kilograms: Height (feet): 6 Height (inches): 2.00 Triage Pain Scale: () RN VS reviewed by Provider: Yes () Normal Exams: Head: Normocephalic w/o trauma Eyes: Pupils are PERRLA w/ EOMI, No scleral icterus, irritation ENMT: No facial trauma, nasal exudates, pharyngeal erythema Neck: Full range of motion, without adenopathy, JVD Lymphatic: No lymphadenopathy Musculoskeletal: No tenderness, or deformity noted Neurologic: Patient is alert, and oriented Psychiatric: Patient exhibits, appropriate attention () Respiratory (brief) Respiratory: FOUND: clear all crooks, equal bilaterally, symmetrical, NOT FOUND : rales, wheezes () Cardiovascular (brief) Cardiac: FOUND: regular rate, NOT FOUND: click, gallop, murmur, pedal edema, peripheral edema, regular rhythm (Irregularly irregular), rub Capillary Refill: <2 sec Pulses: all distal extremities, equal, strong () Abdomen (brief) Abdominal Brief: FOUND: bowel normo active x4, soft, NOT FOUND: distended, hepatosplenomegaly, pulsatile mass, tender () Integumentary (brief) Integumentary Brief: FOUND: pink, warm Comments SubQ mass and ecchymosis over right forehead. () Differential Diagnoses Considering: Acute PA, Cardiac Dysrhythmia, Concussion, Contusion, Dislocation , Fracture, Orthostatic Changes, Strain, Subdural Hematoma, UTI, Vasovagal () Considering: Abrasion (PATY ROBLES DO) Progress Results/Orders Orders Procedure Category Date Status Time Cbc W/Auto LAB 10/03/16 Complete Diff-Reflex Manual 05:42 Cmp - Comprehensive LAB 10/03/16 Complete Metabolic 05:42 Ua, Dip Wreflex LAB 10/03/16 Complete Microsc & Straight Truck Driver 05:42 INR LAB 10/03/16 Complete 05:42 PTT LAB 10/03/16 Complete 05:42 EKG EKG 10/03/16 Taken 05:42 Ct Head W/O Contrast CT 10/03/16 Resulted 05:42 Ct Cervical Spine W/O CT 10/03/16 Resulted Contrast 05:42 Iv Lock (Ed Only) EDM 10/03/16 Transmitted 05:42 Oxygen Administration EDM 10/03/16 Transmitted 05:42 Troponin I W LAB 10/03/16 Complete Hemolysis Index 05:42 Probnp LAB 10/03/16 Complete 05:42 Ondansetron Inj PHA 10/03/16 Complete (Zofran) 05:45 Chest 1 View RAD 10/03/16 Resulted (PATY ROBLES DO) Lab Results Laboratory Tests Test 10/03/16 05:19 10/03/16 06:50 White Blood Count 5.2T/MM3 Red Blood Count 3.34M/MM3 Hemoglobin 10.9GM/DL Hematocrit 32.7% Mean Corpuscular Volume 97.9UM3 Mean Corpuscular Hemoglobin 32.6UUG Mean Corpuscular Hemoglobin Concent 33.3GM/DL RDW Standard Deviation 49.3FL Platelet Count 182T/MM3 Mean Platelet Volume 10.3UM3 Immature Granulocyte % (Auto) 0.2% Neutrophils (%) (Auto) 58.0% Lymphocytes (%) (Auto) 25.5% Monocytes (%) (Auto) 11.6% Eosinophils (%) (Auto) 4.1% Basophils (%) (Auto) 0.6% Absolute Immature Granulocyte (auto 0.01T/MM3 Absolute Neutrophils (auto) 3.0T/MM3 Absolute Lymphocytes (auto) 1.3T/MM3 Absolute Monocytes (auto) 0.6T/MM3 Absolute Eosinophils (auto) 0.2T/MM3 Absolute Basophils (auto) 0.0T/MM3 Prothromb Time International Ratio 2.24 Activated Partial Thromboplast Time 34.7SEC Turbidity < 20 Sodium Level 139MEQ/L Potassium Level 4.4MEQ/L Chloride Level 101MEQ/L Carbon Dioxide Level 26MEQ/L Anion Gap 12MEQ/L Blood Urea Nitrogen 29.0MG/DL Creatinine 1.3MG/DL Glomerular Filtration Rate Calc 52 BUN/Creatinine Ratio 22RATIO Glucose Level 96MG/DL Calculated Osmolality 274MOSM/KG Calcium Level 8.7MG/DL Total Bilirubin 1.00MG/DL Icterus Index < 2 Aspartate Amino Transf (AST/SGOT) 41U/L Alanine Aminotransferase (ALT/SGPT) 38U/L Alkaline Phosphatase 67U/L Troponin I 0.043ng/ml PM-Fxc-L-Type Natriuretic Peptide 3450PG/ML Total Protein 7.5G/DL Albumin 3.6G/DL Globulin 3.9G/DL Albumin/Globulin Ratio 0.9RATIO Chemistry Specimen Hemolysis 36 Urine Collection Type Cleancatch-midstream Urine Color Yellow Urine Turbidity Clear Urine pH 6.5 Urine Specific [place] 1.015 Urine Protein Negative Urine Glucose (UA) Negative Urine Ketones Negative Urine Blood Negative Urine Nitrite Negative Urine Bilirubin Negative Urine Urobilinogen 0.2EU/DL Urine Leukocyte Esterase Negative Urinalysis Comment Microscopic not ind. (PATY ROBLES DO) Lab Results Laboratory Tests Test 10/03/16 05:19 10/03/16 06:50 White Blood Count 5.2T/MM3 Red Blood Count 3.34M/MM3 Hemoglobin 10.9GM/DL Hematocrit 32.7% Mean Corpuscular Volume 97.9UM3 Mean Corpuscular Hemoglobin 32.6UUG Mean Corpuscular Hemoglobin Concent 33.3GM/DL RDW Standard Deviation 49.3FL Platelet Count 182T/MM3 Mean Platelet Volume 10.3UM3 Immature Granulocyte % (Auto) 0.2% Neutrophils (%) (Auto) 58.0% Lymphocytes (%) (Auto) 25.5% Monocytes (%) (Auto) 11.6% Eosinophils (%) (Auto) 4.1% Basophils (%) (Auto) 0.6% Absolute Immature Granulocyte (auto 0.01T/MM3 Absolute Neutrophils (auto) 3.0T/MM3 Absolute Lymphocytes (auto) 1.3T/MM3 Absolute Monocytes (auto) 0.6T/MM3 Absolute Eosinophils (auto) 0.2T/MM3 Absolute Basophils (auto) 0.0T/MM3 Prothromb Time International Ratio 2.24 Activated Partial Thromboplast Time 34.7SEC Turbidity < 20 Sodium Level 139MEQ/L Potassium Level 4.4MEQ/L Chloride Level 101MEQ/L Carbon Dioxide Level 26MEQ/L Anion Gap 12MEQ/L Blood Urea Nitrogen 29.0MG/DL Creatinine 1.3MG/DL Glomerular Filtration Rate Calc 52 BUN/Creatinine Ratio 22RATIO Glucose Level 96MG/DL Calculated Osmolality 274MOSM/KG Calcium Level 8.7MG/DL Total Bilirubin 1.00MG/DL Icterus Index < 2 Aspartate Amino Transf (AST/SGOT) 41U/L Alanine Aminotransferase (ALT/SGPT) 38U/L Alkaline Phosphatase 67U/L Troponin I 0.043ng/ml RG-Bfx-F-Type Natriuretic Peptide 3450PG/ML Total Protein 7.5G/DL Albumin 3.6G/DL Globulin 3.9G/DL Albumin/Globulin Ratio 0.9RATIO Chemistry Specimen Hemolysis 36 Urine Collection Type Cleancatch-midstream Urine Color Yellow Urine Turbidity Clear Urine pH 6.5 Urine Specific [place] 1.015 Urine Protein Negative Urine Glucose (UA) Negative Urine Ketones Negative Urine Blood Negative Urine Nitrite Negative Urine Bilirubin Negative Urine Urobilinogen 0.2EU/DL Urine Leukocyte Esterase Negative Urinalysis Comment Microscopic not ind. (OCTOBER,LÁZARO M DO) Medications Current ED Medications Ondansetron HCl (Zofran) 4 mg O ONCE IV Last administered on 10/03/16 06:06; Start 10/03/16 at 05:45; Stop 10/03/16 at 05:46; Status DC (PATY ROBLES DO) Medications Current ED Medications Ondansetron HCl (Zofran) 4 mg O ONCE IV Last administered on 10/03/16 06:06; Start 10/03/16 at 05:45; Stop 10/03/16 at 05:46; Status DC (LÁZARO AMBRIZ DO) Progress Progress Labs explained to Daughter, who is also a nurse. All labs and imaging explained , including Troponin I and BNP Patient has no complaints on Discharge I discussed admission, but the Daughter refused Will follow with Dr. Harris, returning to the ER with worsening symptoms (PATY ROBLES DO) EKG EKG : Rate: 60-100 Rhythm: atrial fibrillation [place]: normal QRS: RBBB (Incomplete) Intervals: normal ST/T: normal Interpreted by: signing physician (PATY ROBLES DO) EKG ScImage/Picomm EKG interpreted in ScImage/Pic: No (PATY ROBLES DO) Xray Xray : Reason for Exam: cough Xray: CXR Portable Interpretation: Abnormal, Reviewed Written Report (Vascular congestion, without overt failure) (PATY ROBLES DO) CT CT #1: Reason for Exam: Fell / Struck Head / Coumadin CT: Head no contrast Interpretation: Abnormal, Faxed Report (Hematoma right frontal scalp, otherwise negative) CT #2: Reason for Exam: Fell / Neck Pain CT: C-Spine no contrast Interpretation: Normal, Faxed Report (PATY ROBLES DO) LÁZARO AMBRIZ DO Oct 03, 2016 05:48 PATY ROBLES DO Oct 03, 2016 07:09
[2016-10-03 06:00] LABS: BASOPHILS % (AUTO) 0.6 % (0-2); EOSINOPHILS # (AUTO) 0.2 T/MM3 (0-0.5); EOSINOPHILS % (AUTO) 4.1 % (0-4); HCT - HEMATOCRIT 32.7 % (41-53); HGB - HEMOGLOBIN 10.9 GM/DL (13.5-17.5); IMMATURE GRANULOCYTE # (AUTO) 0.01 T/MM3 (0.00-0.03); IMMATURE GRANULOCYTE % (AUTO) 0.2 % (0.0-0.5); LYMPHOCYTES # (AUTO) 1.3 T/MM3 (1-4.8); LYMPHOCYTES % (AUTO) 25.5 % (23-45); MEAN CORPUSCULAR HGB 32.6 UUG (26-34); MEAN CORPUSCULAR HGB CONC(MCHC 33.3 GM/DL (31-37); MEAN CORPUSCULAR VOLUME 97.9 UM3 (80-100); MEAN PLATELET VOLUME 10.3 UM3 (9.4-12.4); MONOCYTES # (AUTO) 0.6 T/MM3 (0-0.8); MONOCYTES % (AUTO) 11.6 % (0-9.0); RED BLOOD COUNT 3.34 M/MM3 (4.50-5.90); WBC - WHITE BLOOD COUNT 5.2 T/MM3 (4.5-11.0)
[2016-10-03] MEDS ORDERED: CETI10CA19 PO (06:02)
--- NOTE | 2016-10-03 06:05 | NUR ---
report report from concha matthewgeneral internshift manager ed staff
[2016-10-03 06:07] LABS: INR 2.24 (0.76-1.04); PROTHROMBIN TIME 24.4 SEC (9.31-12.49); PTT 34.7 SEC (24-36)
[2016-10-03 06:09] LABS: ALBUMIN 3.6 G/DL (3.5-5.0); ALBUMIN/GLOBULIN RATIO 0.9 RATIO (1.1-2.2); ALKALINE PHOSPHATASE 67 U/L (38-126); ALT (SGPT) 38 U/L (21-72); ANION GAP 12 MEQ/L (5-15); AST (SGOT) 41 U/L (17-59); BUN/CREATININE RATIO 22 RATIO (6-26); CALCIUM 8.7 MG/DL (8.4-10.2); CHLORIDE 101 MEQ/L (98-107); CO2 - CARBON DIOXIDE 26 MEQ/L (22-30); CREATININE 1.3 MG/DL (0.8-1.5); GLOMERULAR FILTRATION RATE 52; GLUCOSE 96 MG/DL (75-110); POTASSIUM 4.4 MEQ/L (3.6-5); SODIUM 139 MEQ/L (134-144); TOTAL PROTEIN 7.5 G/DL (6.3-8.2)
[2016-10-03 06:18] LABS: PROBNP 3450 PG/ML (0-175)
--- OUTSIDE RECORDS SUMMARY | 2016-10-03 06:34 | XMS REPORT | Continuity of Care Document ---
Author Author [facility] Organization [facility] Address Unknown Phone Unavailable Support Name Relationship Address Phone LARRY REYES II, MD Caregiver [address] [place] [address] [address] [place], [place] [phone] MARTHA MOODY MD Caregiver [facility] [address] [place] [address] [address] [place], [place] [id number] CALEB FLORES DPOA Next Of Kin [address] [place] [address] DA Insurance Providers Payer Name Policy Number Subscriber Name Relationship Medicare [id number] Annalee Tabares 20 Self [facility] [id number] Annalee Tabares 18 Self Advance Directives Directive [...] A DAY 10/24/13 03/20/14 Discontinued Green Tea [place] Extract Unknown Dose PO 11/22/13 11/25/13 Discontinued [...] Discharge Date 06/10/14 7:00pm Disposition 02 TO [facility] Condition at Discharge Stable Instructions/Education Provided [...] F (96.8 - 99.1) Temperature (Calculated Celsius) 36.72713 degrees C (36.0 - 37.3) Temperature Source [...] 23, 2013 8:08pm LAB TEST FORM REQUEST [id number] - Lymphocytes # (Auto) July 16, 2014 [...] % H 0-9.0 COMMENT [facility] WILL CALL UO-Wxd-Y-Type Natriuretic Peptide January 04, 2013 7:55pm 2330 [...] 2014 7:59am 45.6 % N 33-66 COMMENT [facility] [place] Parathyroid Hormone (Intact) March 22, 2010 10:29am 40.9 PG/ML N 8.2- 83.5 Percent Iron Saturation June 10, 2014 5:28am 21 % N 13-59 Phosphorus Level March 22, 2010 10:29am 3.8 MG/DL N 2.5-4.5 Platelet Count July 16, 2014 7:59am 143 T/MM3 N 130-400 COMMENT [facility] [place] Potassium Level July 16, 2014 [...] 2014 7:59am 43.0 FL N 36.9-50.2 [facility] [place] Reactive Lymphocytes # January 04, 2013 7:55pm 0.1 T/MM3 H 0-0 Reactive Lymphocytes % January 04, 2013 7:55pm 1.0 % H 0-0 Red Blood Count July 16, 2014 7:59am 3.73 M/MM3 L 4.50-5.90 COMMENT [facility] [place] Respiratory Syncytial Virus Rapid July [...] 2009 11:05am Not done - NO [facility] ORDERED Thyroid Stimulating Hormone (TSH) [...] Has specimen been collected/obtained? Y Urine Specific [place] June 08, 2014 7:20pm 1.010 L - [...] 2009 8:56pm Name: ANNALEE TABARES Unit #: [id number] : 1925 Sex: M Loc / Svc: [facility] DOS: 07/15/14 Signed Report #: [id number] DIAGNOSTIC IMAGING REPORT TYPE OF EXAM: US [...] MD Encounters Encounter Location Date/Time Registered Clinic [facility] 07/15/14 2:25pm Discharged Inpatient [facility] 06/09/14 6:15pm
--- OUTSIDE RECORDS SUMMARY | 2016-10-03 06:34 | XMS REPORT | Continuity of Care Document ---
Author Author [facility] Organization [facility] Address Unknown Phone Unavailable Support Name Relationship Address Phone ASHLYN AVILA MD Caregiver [address] [place] [address] LARRY REYES II, MD Caregiver [address] [facility] [address] [place] [phone] CALEB FLORES DPOA Next Of Kin [address] [place] [address] DA Advance Directives Directive Response [...] A DAY 10/24/13 03/20/14 Discontinued Green Tea [place] Extract Unknown Dose PO 11/22/13 11/25/13 Discontinued [...] ABOUT YOUR CPM PLEASE CALL [facility] AT [phone]. Condition at time of discharge: Good Occupational [...] F (96.8 - 99.1) Temperature (Calculated Celsius) 35.93861 degrees C (36.0 - 37.3) Temperature Source [...] 23, 2013 8:08pm LAB TEST FORM REQUEST [id number] - Lymphocytes # (Auto) March 20, 2014 [...] 20, 2014 5:12am 11.2 % H 0-9.0 MB-Iwy-S-Type Natriuretic Peptide January 04, 2013 7:55pm 2330 [...] 27, 2009 11:05am Not done - NO [facility] ORDERED Thyroid Stimulating Hormone (TSH) July 04, [...] Has specimen been collected/obtained? Y Urine Specific [place] March 19, 2014 2:05pm 1.010 L - [...] 2009 8:56pm Name: ANNALEE LINDA Unit #: [id number] : 1925 Sex: M [facility] [place]: ED DOS: 03/19/14 Signed Report #: [id number] DIAGNOSTIC IMAGING REPORT TYPE OF EXAM: CT [...] 01/22/14 Encounters Encounter Location Date/Time Discharged Inpatient [facility] 03/19/14 3:08pm Departed Emergency Room [facility] 01/22/14 8:53am Registered Clinic [facility] 12/31/13 10:28am Recent Diagnosis Urinary tract infection Elevated INR Weakness
--- OUTSIDE RECORDS SUMMARY | 2016-10-03 06:34 | XMS REPORT | Continuity of Care Document ---
Author Author [facility] Organization [facility] Address Unknown Phone Unavailable Support Name Relationship Address Phone VICTORIA TUCKER MD Caregiver [facility] [address] [place] [address] Unavailable LARRY REYES II, MD Caregiver [address] [place] [address] [place], [place] [phone] MONIKA HILL MD Caregiver [address] [place] [address] [address] [place] [phone] CALEB FLORES DPOA Next Of Kin [address] [place] [address] DA Insurance Providers Payer Name Policy Number Subscriber Name Relationship Medicare [id number] Annalee Tabares 20 Self [facility] [id number] Annalee Tabares 18 Self Advance Directives Directive [...] A DAY 10/24/13 03/20/14 Discontinued Green Tea [place] Extract Unknown Dose PO 11/22/13 11/25/13 Discontinued [...] F (96.8 - 99.1) Temperature (Calculated Celsius) 36.77376 degrees C (36.0 - 37.3) Temperature Source [...] 23, 2013 8:08pm LAB TEST FORM REQUEST [id number] - Lymphocytes # (Auto) June 10, 2014 [...] 10, 2014 5:28am 11.9 % H 0-9.0 WL-Nls-Q-Type Natriuretic Peptide January 04, 2013 7:55pm 2330 [...] 27, 2009 11:05am Not done - NO [facility] ORDERED Thyroid Stimulating Hormone (TSH) June [...] Has specimen been collected/obtained? Y Urine Specific [place] June 08, 2014 7:20pm 1.010 L - [...] 2009 8:56pm Name: ANNALEE TABARES Unit #: [id number] : 1925 Sex: M [place] [facility] [place]: 06/08/14 Signed Report #: [id number] DIAGNOSTIC IMAGING REPORT TYPE OF EXAM: CT [...] injury. There is a preliminary report by Drizly. . Procedures No known history of procedures. Encounters Encounter Location Date/Time Discharged Inpatient [facility] 06/09/14 6:15pm Discharged Inpatient [facility] 03/19/14 3:08pm Recent Diagnosis Bradycardia Confusion Weakness CAD (coronary artery disease) Atrial fibrillation with slow ventricular response PVC's (premature ventricular contractions) Pulmonary hypertension Acute otitis media with effusion Acute otitis externa of right ear Anemia
--- NOTE | 2016-10-03 06:35 | NUR ---
ct pt to ct scan, i went with the pt for spinal precautions. pt return to trauma B. daughter at bedside. straight cath completed for UA.
--- OUTSIDE RECORDS SUMMARY | 2016-10-03 06:35 | XMS REPORT | Continuity of Care Document ---
Author Author [facility] Organization [facility] Address Unknown Phone Unavailable Support Name Relationship Address Phone PATY ROBLES Caregiver [facility] [address] [place] [address] LARRY REYES II, MD Caregiver [address] [place] [phone] CALEB FLORES DPOA Next Of Kin [address] [place] [address] DA Insurance Providers Payer Name Policy Number Subscriber Name Relationship Medicare [id number] Annalee Tabares 20 Self [facility] [id number] Annalee Tabares 18 Self Advance Directives Directive [...] TWICE A DAY 10/24/13 Active Green Tea [place] Extract Unknown Dose PO 11/22/13 11/25/13 Discontinued [...] F (96.8 - 99.1) Temperature (Calculated Celsius) 36.04672 degrees C (36.0 - 37.3) Pulse Rate [...] Has specimen been collected/obtained? Y Urine Specific [place] September 26, 2013 1:15am 1.010 L - [...] 23, 2013 8:08pm LAB TEST FORM REQUEST [id number] - EKG March 30, 2009 7:20pm Complete [...] January 22, 2014 8:55am < 2 0-7 BW-Mxw-V-Type Natriuretic Peptide January 04, 2013 7:55pm 2330 PG/ML H 0- 175 Rule in cut points: <50 years old=450; 50-75 years old=900; >75 years old=1800; When utilizing ProBNP rule-in cut points, adjustment for impaired renal function is typically not required. Blood Culture Blood September 26, 2013 1:05am Strep Dysgalact Sp Equisimilis Gram Stain Leg-Right Upper March 30, 2009 8:56pm Name: ANNALEE TABARES Unit #: [id number] : 1925 Sex: M Loc / Svc: ED DOS: 01/22/14 Signed Report #: [id number] DIAGNOSTIC IMAGING REPORT TYPE OF EXAM: CT [...] Encounters Encounter Location Date/Time Departed Emergency Room [facility] 01/22/14 8:53am Registered [facility] 12/31/13 10:28am Registered [facility] 12/17/13 8:25am Registered [facility] 12/10/13 10:43am Registered [facility] 12/05/13 10:18am Registered [facility] 12/02/13 10:04am Registered [facility] 11/29/13 10:24am Registered [facility] 11/21/13 10:04am Registered [facility] 11/18/13 10:09am Registered Clinic [facility] 11/15/13 10:06am Registered Clinic [facility] 11/11/13 10:20am Registered Clinic [facility] 11/08/13 9:58am Registered Clinic [facility] 11/05/13 10:13am Registered Clinic [facility] 10/31/13 11:08am Registered Clinic [facility] 10/28/13 9:06am Recent Diagnosis
[2016-10-03 06:58] LABS: BLOOD, URINE NEGATIVE (NEGATIVE); COLOR,URINE YELLOW (YELLOW); LEUKOCYTE ESTERASE ,URINE NEGATIVE (NEGATIVE); NITRITE,URINE NEGATIVE (NEGATIVE); UROBILINOGEN,URINE 0.2 EU/DL (NORMAL)
--- NOTE | 2016-10-03 07:00 | NUR ---
meds primidone changed to bid from since last visit.
[2016-10-03] MEDS ORDERED: P-EP-93 PO (07:03)
[2016-10-03] MEDS ORDERED: HYDR-4010 PO (07:08)
[2016-10-03] MEDS ORDERED: PRIM50TA30 PO (07:09)
--- NOTE | 2016-10-03 07:49 | DI ---
Indication: ITS.REASON: fall; pain PROCEDURE: CT CERVICAL SPINE W/O CONTRAST: Encounter: Initial Comparison: None Technique: Axial CT images through the cervical spine were performed without contrast. Coronal and sagittal reformatted images were also obtained. Automated Exposure Control and Iterative Reconstruction dose reducing techniques were utilized. FINDINGS: The alignment of the cervical spine is normal. Multilevel degenerative changes are present. There is no evidence of acute fracture or subluxation of the cervical spine. There is moderate posterior facet arthropathy and mild degenerative disc disease with posterior uncovertebral joint spurs at multiple levels. The atlantoaxial articulation, dens, and upper cervical spine demonstrate no subluxation. There is no evidence of significant spinal stenosis, foraminal compromise, or significant disk herniation. The paraspinal soft tissues and spinal canal appear unremarkable. The lung apices are clear without pneumothorax. IMPRESSION: No acute traumatic abnormality of the cervical spine. .
--- NOTE | 2016-10-03 07:51 | DI ---
Indication: ITS.REASON: Fall; hematoma; anti-coag PROCEDURE: CT HEAD W/O CONTRAST: Encounter: Initial Comparison: None Technique: Axial CT images through the head were performed without contrast. Iterative Reconstruction dose reducing technique was utilized. FINDINGS: There is a scalp hematoma overlying the right frontal aspect of the skull. The ventricles are of normal size, shape, and contour for the patient's age. There are scattered areas of low attenuation in the white matter which most likely represent changes from chronic microvascular ischemia. The brainstem, cerebellum, and cerebral hemispheres otherwise have a normal morphology and CT attenuation. There is no evidence of midline displacement. No hemorrhage, signs of acute territorial stroke, mass effect, mass lesions, or edema is evident. The visualized portions of the skull base, midface, and calvarium demonstrate no abnormality. The paranasal sinuses are well aerated and free of significant disease. The tympanic and mastoid cavities appear normal. IMPRESSION: No acute intracranial abnormality or hemorrhage. .
--- NOTE | 2016-10-03 08:21 | DI ---
Indication: ITS.REASON: cough PROCEDURE: CHEST 1 VIEW: Encounter: Initial Comparison: 09/16/2016 Findings: There is mild cardiomegaly and pulmonary vascular congestion without overt interstitial pulmonary edema. The lungs are clear. There is no focal opacity to suggest atelectasis or pneumonia. No mediastinal or hilar adenopathy. No pleural effusion. There is mild tortuosity of the descending thoracic aorta. The patient is status post median sternotomy. There is no significant degenerative changes of the thoracic spine. IMPRESSION: Cardiomegaly and pulmonary vascular congestion without overt CHF. .
--- NOTE | 2016-10-03 08:23 | NUR ---
UPDATE SPOKE WITH DAUGHTER OF THE PT, PLAN OF CARE DISCUSSED WITH PT AND ER . FACILITY FOR PT CONTACTED TO BRING WHEEL CHAIR VAN AND WHEEL CHAIR WITH CLOTHING FOR THE PT TO RETURN HOME. UPDATED INFORMATION PROVIDED TO NURSING STAFF. ANGELICA CABALLERO, REPORT CALLED.
[2016-10-03 09:30] VITALS: BP 172/78; PULSE 81; RESP 14; TEMP 98.1; O2SAT 98
== END 2016-10-03 09:30 | disposition home or self-care (01) ==
LOC: ED 05:34
DX: S00.03XA Contusion of scalp, initial encounter (principal); M54.2 Cervicalgia; Z79.01 Long term (current) use of anticoagulants; W01.0XXA Fall on same level from slipping, tripping and stumbling without subsequent striking against object, initial encounter; Y93.01 Activity, walking, marching and hiking; Y92.009 Unspecified place in unspecified non-institutional (private) residence as the place of occurrence of the external cause; Y99.8 Other external cause status
CPT/HCPCS: 70450; 71010; 72125; 80053; 81003; 83880; 84484; 85025; 85610; 85730; 93005; 96374; 99284; J2405